=== PATIENT | female | born 1945 | race Caucasian/White ===

== ENCOUNTER 2016-06-02 13:11 | Inpatient (IN) | payer OTHER ==
[~2016-06-02] VITALS: Ht 162.6 cm; Wt 73.5 kg
--- NOTE | ~2016-06-02 | EKG ---
[address] [address] ELECTROCARDIOGRAM REPORT Name: SHARON HANKS Room #: 442-P ADM IN M.R.#: [id number] Admission: 06/02/16 Attend Phys: Nguyễn Espinosa MD Discharge: Date of : 45 Report #: [id number] THIS REPORT FOR: //name// [facility] ED Test Date: 2016-06-02 Test Time: 13:33:07 Pat Name: SHARON HANKS Department: Room: [facility] Gender: F Clinical Laboratory Medical Director: MZOOK : 1945 Requested By: Charles Eldridge Order Number: [id number] MD: Chad Perkins Measurements Intervals [place] Rate: 124 P: 67 NM: 142 QRS: 64 QRSD: 93 T: 48 QT: 302 QTc: 434 Interpretive Statements Sinus tachycardia Probable left atrial enlargement Borderline T abnormalities, anterior leads No previous ECG available for comparison Electronically Signed On 06-03-2016 8:47:38 CDT by Chad Perkins [email or web address] <ELECTRONICALLY SIGNED> By: Chad Perkins MD, [facility] 06/03/16 0847 1333 32 Chad Perkins MD, FAC /EPI
--- NOTE | ~2016-06-02 | 2DMMODE ---
[facility] [employer] [place] [address] 2 D/M-MODE ECHOCARDIOGRAM Name: DEMARIOSHARON Tushar Room #: 442-P [facility] IN .#: [id number] Admission: 06/02/16 Attend Phys: Nguyễn Espinosa, Discharge: Date of : 45 Date of Service: 06/03/16 1313 Report #: [id number] THIS REPORT FOR: //name// APPROVED REPORT Study performed: 06/03/2016 10:35:11 EXAM: Comprehensive 2D, Doppler, and color-flow Echocardiogram Patient Location: In-Patient Room #: 442 Blood Pressure: 110/60 mmHg HR: 119 bpm Other Information Study Quality: Adequate Indications COPD Hypertension/HDD 2D Dimensions LVEF(%): 48.60 (>50%) IVSd: 10.52 (7-11mm) LVOT Diam: 17.00 (18-24mm) LVDd: 39.49 mm PWd: 10.55 (7-11mm) LVDs: 29.96 (25-40mm) Oshea's LVEF: 48.60 % Volumes Left Atrial Volume (Systole) Single Plane 4CH: 41.81 mL Single Plane 2CH: 22.67 mL LA ESV Index: 18.00 mL/m2 Aortic Valve AoV Peak Reagan.: 2.39 m/s AO Peak Gr.: 22.92 mmHg LV Max P.30 mmHg AO Mean Gr.: 12.81 mmHg LV Mean P.81 mmHg LV Max: 1.37 m/s AO V2 VTI: 371.17 mm LV Mean: 1.04 m/s ROWAN (VTI): 1.43 cm2 LV V1 VTI: 238.14 mm SV (LVOT): 52.92 mL [facility] [place] [address] 2 D/M-MODE ECHOCARDIOGRAM Name: SHARON HANKS Room #: 442-P [facility] IN M.R.#: [id number] Admission: 06/02/16 Attend Phys: Nguyễn Espinosa, Discharge: Date of : 45 Date of Service: 06/03/16 1313 Report #: [id number] Mitral Valve E/A Ratio: 0.7 MV Decel. Time: 105.74 ms MV E Max Reagan.: 1.16 m/s MV A Reagan.: 1.76 m/s MV PHT: 30.66 ms Pulmonary Valve PV Peak Reagan.: 1.10 m/s PV Peak Gr.: 4.89 mmHg Tricuspid Valve TR Peak Reagan.: 3.22 m/s RAP Estimate: 5.00 mmHg TR Peak Gr.: 41.56 mmHg Left Ventricle The left ventricle is normal size. There is normal LV segmental wall motion. Mild concentric left ventricular hypertrophy. Left ventricular systolic function is normal. The left ventricular ejection fraction is within the normal range. LVEF is 55-60%. Grade I - abnormal relaxation pattern. Right Ventricle Right ventricle is borderline dilated. The right ventricular systolic function is normal. Atria The left atrium size is normal. The right atrium size is normal. Aortic Valve The Aortic valve is sclerotic, incompletely imaged. No aortic regurgitation is present. Mild aortic stenosis (Peak gradient 23mm, mean 13mmHg). Mitral Valve Moderate mitral annular calcification. There is no mitral valve regurgitation noted. No evidence of mitral valve stenosis. Tricuspid Valve The tricuspid valve is normal in structure. Mild tricuspid regurgitation. Pulmonic Valve The pulmonary valve is normal in structure. There is no pulmon[place] [address] 2 D/M-MODE ECHOCARDIOGRAM Name: LARS HANKSELSA Finley Room #: 442-P [facility] IN .R.#: [id number] Admission: 06/02/16 Attend Phys: Nguyễn Espinosa, Discharge: Date of : 45 Date of Service: 06/03/16 1313 Report #: [id number] Great Vessels The aortic root is normal in size. IVC is normal in size and collapses with >50% inspiration Pericardium Small pericardial effusion. <Conclusion> There is normal left ventricular wall thickness. Left ventricular systolic function is normal. There is normal LV segmental wall motion. LVEF 55-60%. Grade I diastolic dysfunction. Mild RV enlargement, normal function The Aortic valve is sclerotic, incompletely imaged. Mild aortic stenosis (Peak gradient 23mm, mean 13mmHg). No aortic regurgitation is present. Moderate mitral annular calcification. No mitral valve regurgitation or stenosis Pulmonary artery pressure normal. Small pericardial effusion. <ELECTRONICALLY SIGNED> By: Chad Perkins MD, FACC 06/03/16 131 12 12 Chad Perkins MD, FACC /INF
--- NOTE | ~2016-06-02 | HC ---
[facility] [place] [address] CONSULTATION Name: SHARON HANKS Room #: 442-P ADM IN M.R.#: [id number] Admission: 06/02/16 Attend Phys: Nguyễn Espinosa MD Discharge: Date of : 45 Report #: [id number] THIS REPORT FOR: //name// CC: Nguyễn Arce DATE OF SERVICE: 06/02/2016 TYPE OF REPORT: General surgery consultation. CHIEF COMPLAINT: Abdominal pain. HISTORY OF PRESENT ILLNESS: This is a 70-year-old female patient who was seen in the [facility] with complaints of lower abdominal pain over the past 8 days. Her pain has been unchanged over that amount of time. She elected to visit the emergency room as she felt she could not go on further. She denies nausea, vomiting, fever or chills. Her last bowel movement was this morning, which she reports as a soft but not normal. She denies passage of bright red blood per rectum. She states that when she usually has pain like this, it resolves with p.o. fluids. She describes this as gas pain. When seen in the emergency room, she underwent a CT of the abdomen and pelvis, which showed the findings for acute sigmoid diverticulitis with evidence for perforation. In addition to this, the patient had dilated loops of small bowel with air-fluid levels. I have been asked to see the patient for further evaluation and treatment. PAST MEDICAL HISTORY: Includes COPD, gastroesophageal reflux disease, depression, anxiety, hypercholesterolemia and hypertension. PAST SURGICAL HISTORY: Denies. MEDICATIONS: At home include Paxil, buspirone, omeprazole, Cozaar, aspirin, Mevacor, hydrochlorothiazide and a probiotic (please see the electronic medical record for dosing details). ALLERGIES: No known drug allergies. FAMILY HISTORY: Reviewed and noncontributory to this hospitalization, although the patient does report a family history of diverticulitis (the patient's daughter). SOCIAL HISTORY: The patient smokes a half pack or greater of cigarettes daily since she was teenager. She admits to one alcoholic drink per day (one glass of wine). 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 She lost her due to colon cancer. She is accompanied by her daughter. [address] [address] CONSULTATION Name: SHARON HANKS Room #: 442-P [facility] IN M.R.#: [id number] Admission: 06/02/16 Attend Phys: Nguyễn Espinosa MD Discharge: Date of : 45 Report #: [id number] REVIEW OF SYSTEMS: As per history of present illness and in addition: GENERAL: The patient denies unintentional weight loss. Denies fever or chills. HEENT: Denies changes in taste, vision, hearing or smell. RESPIRATORY: Denies worsening shortness of breath (had history of COPD). CARDIOVASCULAR: Denies chest pain or palpitations. GASTROINTESTINAL: As per history of present illness. Denies bright red blood per rectum. Has never undergone a colonoscopy in the past. GENITOURINARY: Denies dysuria, urgency, increased urinary frequency or hematuria. MUSCULOSKELETAL: Denies arthralgia or myalgia. NEUROLOGICAL: Denies headaches, numbness or tingling. PSYCHIATRIC: Denies suicidal ideations. Has a history of depression or anxiety. SKIN AND INTEGUMENTARY: Denies new skin lesions, rashes or moles. ENDOCRINE: Denies polydipsia, polyuria, heat or cold intolerance. HEMATOLOGIC: Denies easy bleeding, bruising or anemia. All other review of systems is negative. PHYSICAL EXAMINATION: VITAL SIGNS: Temperature 99.5, blood pressure 102/54, pulse 122, respirations 17 and SpO2 95%. GENERAL: This is a 70-year-old female patient, in no acute distress. HEENT: Atraumatic and normocephalic with moist mucosal membranes. Oropharynx is clear. She has no scleral icterus. NECK: Supple. No appreciable lymphadenopathy. Trachea is midline. CHEST: Clear bilaterally. No crackles or wheezes. CARDIOVASCULAR: Sinus tachycardia. S1 and S2. ABDOMEN: Soft, but tender to palpation, greatest in the lower abdomen. She has mild voluntary guarding but no rebound. No palpable masses. No appreciable hernias. GENITOURINARY: Normal external female genitalia. EXTREMITIES: No clubbing, cyanosis or edema. NEUROLOGICAL: Cranial nerves 2 through 12 grossly intact. PSYCHIATRIC: Normal mood and affect. SKIN AND INTEGUMENTARY: No acute inflammatory changes, rashes or lesions are present. LABORATORY DATA: CBC shows a white blood cell count 8, hemoglobin 14.3, hematocrit 42.2 and platelets 305 with 48% segmented neutrophils. The comprehensive metabolic profile shows a sodium 131, potassium 3.2, chloride 91, CO2 29, BUN 29, creatinine 1.8 and glucose 135 with normal liver function tests and a normal lipase. Her troponin-I was less than 0.04. Lactic acid was normal at 1.9. The natriuretic peptide was elevated at 8579. RADIOLOGIC STUDIES: CT of the abdomen and pelvis was reviewed in detail with [address] [address] CONSULTATION Name: SHARON HANKS Room #: 442-P ADM IN [facility].#: [id number] Admission: 06/02/16 Attend Phys: Nguyễn Espinosa MD Discharge: Date of : 45 Report #: [id number] the radiologist who read the study, Dr. Garret Ivan. The patient was felt to have diverticulitis with a perforation of the sigmoid colon with small areas of pneumoperitoneum. There was extraluminal air and fluid adjacent to the left colon. Diffuse colonic diverticulosis was noted. In addition, dilated loops of small bowel, measuring up to 4.1 cm with air-fluid levels were seen with no focal transition point. IMPRESSION AND PLAN: This is a 70-year-old female patient with a history of chronic obstructive pulmonary disease, hypertension, gastroesophageal reflux disease, hypercholesterolemia, depression/anxiety and colonic diverticulosis, who now has diverticulitis with a probable perforation/microperforation and probable abscess. In discussion with radiology, if any abscess was present, it did not appear to be matured and not amenable to drain placement. His recommendation was for a repeat CT of the abdomen and pelvis with rectal contrast. The patient cannot receive IV contrast as her creatinine is elevated at 1.8, likely secondary to dehydration. In addition to this, the patient's b-natriuretic peptide was elevated. Medicine will address this. The patient may benefit from a cardiology consult. I agree with the patient receiving IV antibiotics and bowel rest. We discussed the pathophysiology and natural history of diverticular disease as well as the workup, treatment alternatives and surgical options. We discussed both immediate/urgent and delayed surgical options, pending the patient's clinical course. The patient expressed understanding. I will follow along with serial abdominal exams as well as labs and x-rays as necessary. A CT of the abdomen and pelvis with water-soluble rectal contrast will be obtained soon. Interventional radiology will be consulted if an abscess is present to potential have the abscess percutaneously drained. The patient expressed understanding of the plan. I sincerely appreciate the opportunity to participate in the care of this patient and we will leave further recommendations and orders in the electronic medical record as appropriate. Thank you very much. <ELECTRONICALLY SIGNED> By: Nish Lobo MD, FACS 06/04/16 0735 2304 0550 Nish Lobo MD, FACS /nt
--- NOTE | ~2016-06-02 | HC ---
[facility] [place] [address] CONSULTATION Name: SHARON HANKS Room #: 442-P [facility] IN M.R.#: [id number] Admission: 06/02/16 Attend Phys: Luci Kirkland MD Discharge: Date of : 45 Report #: [id number] THIS REPORT FOR: //name// CC: Nay Kirkland DATE OF SERVICE: 06/12/2016 TYPE OF REPORT: Infectious disease consultation. ATTENDING PHYSICIAN: . HISTORY OF PRESENT ILLNESS: The patient is a 70-year-old white woman initially hospitalized with abdominal pain and diagnosed to have microperforation of acute diverticulitis, which she undergoes a percutaneous drainage initially and again repeated a percutaneous drainage yesterday. She has been on Zosyn . At present, the patient is very uncomfortable, complained of abdominal wall distention and abdominal pain, episode of emesis. PAST MEDICAL HISTORY: COPD, hyperkalemia, acute diverticulitis, diverticular abscess, depression, mucositis secondary to broad spectrum antibiotics. DRUG ALLERGIES: None listed. MEDICATIONS: She is on acetaminophen p.r.n., hydrocodone p.r.n., morphine sulfate p.r.n., enoxaparin 40 mg at bedtime subcutaneously, hydrochlorothiazide 12.5 mg daily, losartan 100 mg daily, simethicone 80 mg a.c. and at bedtime p.r.n., budesonide 0.5 mg inhalation treatments b.i.d., Atrovent, albuterol inhalation treatment every 4 hours, lactobacillus acidophilus 1 capsule daily, aspirin 81 mg daily, paroxetine 10 mg daily, Zosyn 2.25 grams IV every 6 hours since admission, p.r.n. ondansetron. SOCIAL HISTORY: See H and P, old records. FAMILY HISTORY: See H and P, old records. REVIEW OF SYSTEMS: As above and see H and P. PHYSICAL EXAMINATION: GENERAL: Chronically ill-appearing woman has been afebrile for days. VITAL SIGNS: Temperature 98.7, pulse 105, respirations 20, BP 136/74. HEENT: Pupils are reactive. Mouth severe mucositis, redness tongue. NECK: Supple. LUNGS: Decreased breath sounds. HEART: S1, S2. [address] [address] CONSULTATION Name: SHARON HANKS Room #: 442[facility] IN M.R.#: [id number] Admission: 06/02/16 Attend Phys: Luci Kirkland MD Discharge: Date of : 45 Report #: [id number] BREASTS: Deferred. ABDOMEN: Distended, tympanitic, tender with [address], the new is one on right lower quadrant draining serous bloody fluid, the old ALPA draining turbid-looking fluid. NEUROLOGIC: Grossly within normal limits. LABORATORY DATA: Sodium 137, potassium 3, BUN 6, creatinine 0.8. WBC 9000, hemoglobin 11.6, platelets 265,000. MICROBIOLOGY DATA: The repeat cultures from abscess drain yesterday's are pending and the culture obtained on June 07 revealed Bacteroides fragilis, Streptococcus anginosus and E. coli. ASSESSMENT: 1. Acute diverticulitis with perforation and abscess formation, status post percutaneous drainage. 2. Possible ileus. 3. Chronic obstructive pulmonary disease. SUGGESTIONS: Recommend Unasyn 3 grams IV q. 6 hours, Diflucan 200 mg IV daily. Per Dr. Lobo, thank you for requesting my suggestions. <ELECTRONICALLY SIGNED> By: Ricardo Mosquera MD 06/13/16 0555 0828 2236 Ricardo Mosquera MD /nt
[2016-06-02 13:12] VITALS: BP 120/68
[2016-06-02] MEDS ORDERED: PAXIL10 MG PO (13:23)
[2016-06-02] MEDS ORDERED: BUSPIRONE HCL10 MG PO (13:23)
[2016-06-02] MEDS ORDERED: OMEPRAZOLE20 M2 PO (13:24)
[2016-06-02] MEDS ORDERED: COZAAR 25 MG TA25 MG PO (13:24)
[2016-06-02] MEDS ORDERED: COZAAR 50 MG TA50 M2 PO (13:25)
[2016-06-02] MEDS ORDERED: LOVASTATIN 20 M20 MG PO (13:25)
[2016-06-02] MEDS ORDERED: ASPIR 8181 MG PO (13:25)
[2016-06-02] MEDS ORDERED: PROBIOTIC1 EAC1 PO (13:26)
[2016-06-02] MEDS ORDERED: HYDROCHLOROTH12.5 M1 PO (13:26)
[2016-06-02 13:45] LABS: HEMATOCRIT 42.2 % (37.0-47.0); HEMOGLOBIN 14.3 gm/dL (12.0-15.0); MCH 30.3 pg (26.0-34.0); MCHC 33.8 g/dL (28.0-37.0); MCV 89.6 fL (80.0-100.0); PLATELET COUNT 305 thou/uL (150-400); RBC 4.71 mil/uL (4.20-5.00); RDW 13.9 % (10.5-14.5); WBC 8.8 thou/uL (4.0-11.0)
[2016-06-02 13:46] LABS: MANUAL DIFF YES
[2016-06-02 14:05] LABS: POTASSIUM 3.2 mmol/L (3.5-5.1)
[2016-06-02 14:06] LABS: CALCIUM 8.8 mg/dL (8.5-10.1); CREATININE 1.8 mg/dL (0.6-1.0); TOTAL BILIRUBIN 0.4 mg/dL (<0.1-1.0)
[2016-06-02 14:07] LABS: ALBUMIN 2.3 g/dL (3.4-5.0); TOTAL PROTEIN 7.4 g/dL (6.4-8.2)
[2016-06-02 14:28] LABS: ABSOLUTE NEUTROPHILS 7.8 thou/uL (1.4-8.2); TOTAL CELL COUNT 100
[2016-06-02 14:29] LABS: TOXIC GRANULATION 4+
[2016-06-02 14:30] LABS: ANISOCYTOSIS SLIGHT; POLYCHROMASIA SLIGHT
[2016-06-02 16:17] VITALS: BP 102/54
[2016-06-02 17:02] VITALS: BP 93/52
[2016-06-02 19:27] VITALS: BP 107/55
[2016-06-03 05:45] LABS: HEMOGLOBIN 12.6 gm/dL (12.0-15.0); MCH 30.3 pg (26.0-34.0); MCHC 33.3 g/dL (28.0-37.0); MCV 91.2 fL (80.0-100.0); RBC 4.17 mil/uL (4.20-5.00); RDW 14.2 % (10.5-14.5); WBC 9.4 thou/uL (4.0-11.0)
[2016-06-03 06:05] LABS: CALCIUM 7.3 mg/dL (8.5-10.1); CREATININE 1.8 mg/dL (0.6-1.0); POTASSIUM 3.6 mmol/L (3.5-5.1)
[2016-06-03 07:21] VITALS: BP 110/60
[2016-06-03 12:40] VITALS: BP 131/90
[2016-06-03 16:22] VITALS: BP 113/61
[2016-06-03 17:01] LABS: ABG SAMPLE TYPE ARTERIAL; BE(vivo) -0.8 mmol/L (-2 to +3); HCO3 26.2 mmol/L (22.0-26.0); LACTATE 1.21 mmol/L (0.5-2.0); O2(CT) 15.6 mL/dL (15.0-23.0); O2Hb 86.6 % (92.0-98.0); PCO2 53.4 mmHg (35.0-45.0); PO2 60.5 mmHg (80.0-100.0); sO2 88.6 % (92.0-98.0); tCO2 27.8 mmol/L (24.0-30.0)
[2016-06-03 17:02] LABS: STICK SITE L.RADIAL; pH 7.308 (7.360-7.450)
[2016-06-03 17:55] LABS: ABG SAMPLE TYPE ARTERIAL; BE(vivo) -2.5 mmol/L (-2 to +3); HCO3 25.1 mmol/L (22.0-26.0); LACTATE 1.31 mmol/L (0.5-2.0); O2(CT) 16.9 mL/dL (15.0-23.0); O2Hb 91.6 % (92.0-98.0); PCO2 55.3 mmHg (35.0-45.0); PO2 78.1 mmHg (80.0-100.0); sO2 93.7 % (92.0-98.0); tCO2 26.8 mmol/L (24.0-30.0)
[2016-06-03 17:56] LABS: STICK SITE L.RADIAL; pH 7.274 (7.360-7.450)
[2016-06-03 19:37] VITALS: BP 116/55
[2016-06-04 04:32] VITALS: BP 124/54
[2016-06-04 05:54] LABS: HEMATOCRIT 36.9 % (37.0-47.0); HEMOGLOBIN 12.1 gm/dL (12.0-15.0); MCHC 32.8 g/dL (28.0-37.0); MCV 91.3 fL (80.0-100.0); RBC 4.04 mil/uL (4.20-5.00); RDW 14.3 % (10.5-14.5); WBC 10.9 thou/uL (4.0-11.0)
[2016-06-04 06:11] LABS: CALCIUM 7.8 mg/dL (8.5-10.1); CREATININE 1.8 mg/dL (0.6-1.0)
[2016-06-04 06:24] LABS: MANUAL DIFF YES
[2016-06-04 08:00] LABS: PLATELET COUNT 245 thou/uL (150-400); TOTAL CELL COUNT 100
[2016-06-04 08:01] LABS: PLATELET ESTIMATE NORMAL
[2016-06-04 08:02] LABS: TOXIC GRANULATION 2+
[2016-06-04 08:03] VITALS: BP 109/62
[2016-06-04 08:03] LABS: ABSOLUTE NEUTROPHILS 10.1 thou/uL (1.4-8.2)
[2016-06-04 11:25] VITALS: BP 135/55
[2016-06-04 15:50] VITALS: BP 125/63
[2016-06-04 20:34] VITALS: BP 129/63
[2016-06-05 03:40] VITALS: BP 146/75
[2016-06-05 07:22] LABS: HEMATOCRIT 38.5 % (37.0-47.0); HEMOGLOBIN 12.6 gm/dL (12.0-15.0); MCH 29.8 pg (26.0-34.0); MCHC 32.6 g/dL (28.0-37.0); MCV 91.3 fL (80.0-100.0); PLATELET COUNT 206 thou/uL (150-400); RBC 4.22 mil/uL (4.20-5.00); RDW 14.9 % (10.5-14.5); WBC 9.7 thou/uL (4.0-11.0)
[2016-06-05 07:24] LABS: MANUAL DIFF YES
[2016-06-05 07:32] LABS: CALCIUM 8.4 mg/dL (8.5-10.1); CREATININE 1.1 mg/dL (0.6-1.0); POTASSIUM 3.6 mmol/L (3.5-5.1)
[2016-06-05 07:41] VITALS: BP 131/77
[2016-06-05 10:34] LABS: ABSOLUTE NEUTROPHILS 9.2 thou/uL (1.4-8.2); ATYPICAL LYMPHS 1 %; TOTAL CELL COUNT 100
[2016-06-05 10:35] LABS: ANISOCYTOSIS SLIGHT
[2016-06-05 11:11] VITALS: BP 145/73
[2016-06-05 11:11] LABS: ABG SAMPLE TYPE ARTERIAL; BE(vivo) 1.6 mmol/L (-2 to +3); HCO3 29.3 mmol/L (22.0-26.0); LACTATE 1.04 mmol/L (0.5-2.0); O2(CT) 16.5 mL/dL (15.0-23.0); O2Hb 92.1 % (92.0-98.0); PCO2 60.8 mmHg (35.0-45.0); PO2 72.3 mmHg (80.0-100.0); sO2 92.6 % (92.0-98.0); tCO2 31.2 mmol/L (24.0-30.0)
[2016-06-05 11:13] LABS: pH 7.301 (7.360-7.450)
[2016-06-05 11:16] LABS: STICK SITE R.RADIAL
[2016-06-05 15:46] VITALS: BP 151/76
[2016-06-05 20:17] VITALS: BP 145/71
[2016-06-06 03:40] VITALS: BP 156/62
[2016-06-06 04:24] LABS: HEMATOCRIT 37.2 % (37.0-47.0); MCH 30.1 pg (26.0-34.0); MCHC 32.4 g/dL (28.0-37.0); PLATELET COUNT 204 thou/uL (150-400); RDW 15.2 % (10.5-14.5); WBC 9.3 thou/uL (4.0-11.0)
[2016-06-06 04:25] LABS: MANUAL DIFF YES
[2016-06-06 04:33] LABS: CALCIUM 8.6 mg/dL (8.5-10.1); CREATININE 0.9 mg/dL (0.6-1.0); POTASSIUM 3.8 mmol/L (3.5-5.1)
[2016-06-06 05:25] LABS: ABSOLUTE NEUTROPHILS 8.1 thou/uL (1.4-8.2); ANISOCYTOSIS SLIGHT; ATYPICAL LYMPHS 1 %; TOTAL CELL COUNT 100
[2016-06-06 07:41] VITALS: BP 136/80
[2016-06-06 11:39] VITALS: BP 144/72
[2016-06-06 15:53] VITALS: BP 153/79
[2016-06-06 20:00] VITALS: BP 171/80
[2016-06-07 04:14] VITALS: BP 159/93
[2016-06-07 06:16] LABS: HEMOGLOBIN 12.5 gm/dL (12.0-15.0); MCH 30.8 pg (26.0-34.0); MCHC 33.8 g/dL (28.0-37.0); MCV 90.9 fL (80.0-100.0); PLATELET COUNT 221 thou/uL (150-400); RBC 4.06 mil/uL (4.20-5.00); RDW 15.2 % (10.5-14.5); WBC 8.6 thou/uL (4.0-11.0)
[2016-06-07 06:18] LABS: MANUAL DIFF YES
[2016-06-07 06:32] LABS: CALCIUM 7.8 mg/dL (8.5-10.1); CREATININE 0.7 mg/dL (0.6-1.0); POTASSIUM 3.9 mmol/L (3.5-5.1)
[2016-06-07 07:33] VITALS: BP 159/93
[2016-06-07 07:48] VITALS: BP 158/78
[2016-06-07 08:00] VITALS: BP 158/78
[2016-06-07 08:52] LABS: ANISOCYTOSIS SLIGHT; TOTAL CELL COUNT 100
[2016-06-07 16:45] VITALS: BP 121/65
[2016-06-07 20:55] VITALS: BP 154/78
[2016-06-08 00:10] VITALS: BP 142/76
[2016-06-08 04:40] VITALS: BP 135/67
[2016-06-08 08:00] VITALS: BP 144/86
[2016-06-08 11:28] VITALS: BP 139/89
[2016-06-08 16:00] VITALS: BP 137/78
[2016-06-08 19:25] VITALS: BP 127/76
[2016-06-09 03:25] VITALS: BP 133/84
[2016-06-09 05:43] LABS: HEMATOCRIT 36.8 % (37.0-47.0); HEMOGLOBIN 11.8 gm/dL (12.0-15.0); MCH 29.2 pg (26.0-34.0); MCHC 32.1 g/dL (28.0-37.0); MCV 90.9 fL (80.0-100.0); RBC 4.05 mil/uL (4.20-5.00); RDW 14.7 % (10.5-14.5); WBC 9.4 thou/uL (4.0-11.0)
[2016-06-09 05:59] LABS: CALCIUM 8.1 mg/dL (8.5-10.1); CREATININE 0.8 mg/dL (0.6-1.0); POTASSIUM 3.4 mmol/L (3.5-5.1)
[2016-06-09 07:12] LABS: ABG SAMPLE TYPE ARTERIAL; BE(vivo) 9.5 mmol/L (-2 to +3); HCO3 34.3 mmol/L (22.0-26.0); LACTATE 0.85 mmol/L (0.5-2.0); O2(CT) 15.8 mL/dL (15.0-23.0); O2Hb 88.7 % (92.0-98.0); PCO2 47.6 mmHg (35.0-45.0); PO2 57.9 mmHg (80.0-100.0); pH 7.476 (7.360-7.450); sO2 91.5 % (92.0-98.0); tCO2 35.8 mmol/L (24.0-30.0)
[2016-06-09 07:13] LABS: STICK SITE L.RADIAL
[2016-06-09 08:00] VITALS: BP 167/70
[2016-06-09 12:40] VITALS: BP 120/68
[2016-06-09 15:21] VITALS: BP 177/85
[2016-06-09 18:57] VITALS: BP 161/99
[2016-06-10 04:10] VITALS: BP 158/90
[2016-06-10 07:11] VITALS: BP 109/90
[2016-06-10 12:02] VITALS: BP 165/76
[2016-06-10 16:00] VITALS: BP 154/71
[2016-06-10 16:26] VITALS: BP 165/76
[2016-06-10 19:33] VITALS: BP 153/63
[2016-06-11 04:14] VITALS: BP 153/68
[2016-06-11 08:00] VITALS: BP 162/83
[2016-06-11 11:29] VITALS: BP 146/80
[2016-06-11 15:47] VITALS: BP 143/73
[2016-06-12 00:21] VITALS: BP 120/71
[2016-06-12 04:09] VITALS: BP 115/69
[2016-06-12 06:06] LABS: HEMATOCRIT 34.6 % (37.0-47.0); HEMOGLOBIN 11.6 gm/dL (12.0-15.0); MCH 29.8 pg (26.0-34.0); MCHC 33.5 g/dL (28.0-37.0); PLATELET COUNT 265 thou/uL (150-400); RBC 3.89 mil/uL (4.20-5.00); RDW 14.3 % (10.5-14.5)
[2016-06-12 06:18] LABS: CALCIUM 7.4 mg/dL (8.5-10.1); CREATININE 0.8 mg/dL (0.6-1.0)
[2016-06-12 06:28] LABS: MANUAL DIFF YES
[2016-06-12 07:20] VITALS: BP 136/74
[2016-06-12 08:38] LABS: ABSOLUTE NEUTROPHILS 7.5 thou/uL (1.4-8.2); TOTAL CELL COUNT 100
[2016-06-12 11:20] VITALS: BP 136/71
[2016-06-12 15:22] VITALS: BP 157/78
[2016-06-12 19:54] VITALS: BP 153/72
[2016-06-13 03:24] VITALS: BP 144/77
[2016-06-13 03:35] LABS: HEMATOCRIT 35.2 % (37.0-47.0); HEMOGLOBIN 11.7 gm/dL (12.0-15.0); MCH 29.7 pg (26.0-34.0); MCHC 33.1 g/dL (28.0-37.0); MCV 89.9 fL (80.0-100.0); PLATELET COUNT 285 thou/uL (150-400); RBC 3.92 mil/uL (4.20-5.00); RDW 14.2 % (10.5-14.5); WBC 9.5 thou/uL (4.0-11.0)
[2016-06-13 03:48] LABS: MANUAL DIFF YES
[2016-06-13 03:49] LABS: ALBUMIN 1.7 g/dL (3.4-5.0); CALCIUM 8.1 mg/dL (8.5-10.1); CREATININE 0.9 mg/dL (0.6-1.0); PHOSPHORUS 2.9 mg/dL (2.5-4.9); POTASSIUM 3.3 mmol/L (3.5-5.1)
[2016-06-13 04:43] LABS: ABSOLUTE NEUTROPHILS 8.2 thou/uL (1.4-8.2); TOTAL CELL COUNT 100; TOXIC GRANULATION 1+
[2016-06-13 08:00] VITALS: BP 160/81
[2016-06-13 12:00] VITALS: BP 160/83
[2016-06-13 16:00] VITALS: BP 156/78
[2016-06-13 19:53] VITALS: BP 155/79
[2016-06-14 04:16] VITALS: BP 147/73
[2016-06-14 06:14] LABS: HEMATOCRIT 37.7 % (37.0-47.0); HEMOGLOBIN 12.1 gm/dL (12.0-15.0); MCH 29.4 pg (26.0-34.0); MCHC 32.2 g/dL (28.0-37.0); MCV 91.3 fL (80.0-100.0); PLATELET COUNT 357 thou/uL (150-400); RBC 4.13 mil/uL (4.20-5.00); RDW 14.8 % (10.5-14.5); WBC 12.2 thou/uL (4.0-11.0)
[2016-06-14 06:15] LABS: MANUAL DIFF YES
[2016-06-14 06:31] LABS: CALCIUM 8.2 mg/dL (8.5-10.1); CREATININE 0.8 mg/dL (0.6-1.0); PHOSPHORUS 2.7 mg/dL (2.5-4.9); POTASSIUM 3.5 mmol/L (3.5-5.1)
[2016-06-14 07:07] VITALS: BP 160/67
[2016-06-14 08:10] LABS: ABSOLUTE NEUTROPHILS 10.5 thou/uL (1.4-8.2); TOTAL CELL COUNT 100
[2016-06-14 08:11] LABS: ANISOCYTOSIS SLIGHT
[2016-06-14 11:40] VITALS: BP 145/83
[2016-06-14 15:53] VITALS: BP 145/72
[2016-06-14 19:51] VITALS: BP 135/67
[2016-06-15 04:46] VITALS: BP 153/84
[2016-06-15 06:05] LABS: HEMATOCRIT 31.1 % (37.0-47.0); HEMOGLOBIN 10.4 gm/dL (12.0-15.0); MCH 30.2 pg (26.0-34.0); MCHC 33.5 g/dL (28.0-37.0); MCV 90.3 fL (80.0-100.0); PLATELET COUNT 288 thou/uL (150-400); RBC 3.45 mil/uL (4.20-5.00); RDW 14.4 % (10.5-14.5); WBC 10.3 thou/uL (4.0-11.0)
[2016-06-15 06:16] LABS: MANUAL DIFF YES
[2016-06-15 06:22] LABS: CALCIUM 7.9 mg/dL (8.5-10.1); CREATININE 0.8 mg/dL (0.6-1.0); POTASSIUM 3.4 mmol/L (3.5-5.1)
[2016-06-15 09:02] VITALS: BP 154/86
[2016-06-15 09:50] LABS: ABSOLUTE NEUTROPHILS 9.3 thou/uL (1.4-8.2); TOTAL CELL COUNT 100
[2016-06-15 09:51] LABS: ANISOCYTOSIS SLIGHT
[2016-06-15 12:32] VITALS: BP 137/77
[2016-06-15 16:00] VITALS: BP 152/83
[2016-06-15 19:20] VITALS: BP 159/83
[2016-06-16 04:35] VITALS: BP 149/91
[2016-06-16 05:51] LABS: HEMOGLOBIN 10.5 gm/dL (12.0-15.0); MCHC 32.8 g/dL (28.0-37.0); MCV 91.4 fL (80.0-100.0); RBC 3.5 mil/uL (4.20-5.00); RDW 14.8 % (10.5-14.5); WBC 10.1 thou/uL (4.0-11.0)
[2016-06-16 06:10] LABS: ALBUMIN 1.7 g/dL (3.4-5.0); CALCIUM 7.2 mg/dL (8.5-10.1); CREATININE 0.8 mg/dL (0.6-1.0); MAGNESIUM 1.3 mg/dL (1.8-2.4); PHOSPHORUS 2.3 mg/dL (2.5-4.9); POTASSIUM 3.5 mmol/L (3.5-5.1)
[2016-06-16 08:00] VITALS: BP 152/77
[2016-06-16 12:00] VITALS: BP 157/83
[2016-06-16 16:00] VITALS: BP 172/85
[2016-06-16 19:35] VITALS: BP 174/99
[2016-06-17 00:30] VITALS: BP 152/92
[2016-06-17 04:50] VITALS: BP 169/92
[2016-06-17 06:53] LABS: CALCIUM 7.4 mg/dL (8.5-10.1); CREATININE 0.8 mg/dL (0.6-1.0); MAGNESIUM 1.3 mg/dL (1.8-2.4); POTASSIUM 3.9 mmol/L (3.5-5.1)
[2016-06-17 08:31] VITALS: BP 168/97
[2016-06-17 13:19] VITALS: BP 153/76
[2016-06-17 19:03] VITALS: BP 135/75
[2016-06-18 04:45] VITALS: BP 155/97
[2016-06-18 08:00] VITALS: BP 153/93
[2016-06-18 12:14] VITALS: BP 160/92
[2016-06-18 16:45] VITALS: BP 157/100
[2016-06-18 20:20] VITALS: BP 164/103
[2016-06-19 04:40] VITALS: BP 176/105
[2016-06-19 08:44] VITALS: BP 163/84
[2016-06-19 11:35] VITALS: BP 151/75
[2016-06-19 16:07] VITALS: BP 165/85
[2016-06-19 19:52] VITALS: BP 166/99
[2016-06-20 04:20] VITALS: BP 160/88
[2016-06-20 08:19] VITALS: BP 156/83
[2016-06-20 12:24] VITALS: BP 157/89
[2016-06-20 16:27] VITALS: BP 143/68
[2016-06-20 20:35] VITALS: BP 158/99
[2016-06-21] VITALS (8 sets, daily range): BP systolic 160–166; BP diastolic 76–91
[2016-06-21 06:26] LABS: ABSOLUTE NEUTROPHILS 7.1 thou/uL (1.4-8.2); BASOPHILS 0.4 % (0.0-2.0); EOSINOPHILS 0.8 % (0.0-3.0); HEMATOCRIT 31.5 % (37.0-47.0); HEMOGLOBIN 10.6 gm/dL (12.0-15.0); LYMPHOCYTES 10.3 % (24.0-44.0); MCH 29.7 pg (26.0-34.0); MCHC 33.5 g/dL (28.0-37.0); MCV 88.7 fL (80.0-100.0); PLATELET COUNT 348 thou/uL (150-400); POLYS 79.5 % (36.0-66.0); RBC 3.55 mil/uL (4.20-5.00); RDW 15.2 % (10.5-14.5)
[2016-06-21 06:35] LABS: MANUAL DIFF NO
[2016-06-21 06:53] LABS: CALCIUM 8.2 mg/dL (8.5-10.1); CREATININE 0.8 mg/dL (0.6-1.0); POTASSIUM 3.2 mmol/L (3.5-5.1); TOTAL BILIRUBIN 0.3 mg/dL (<0.1-1.0); TOTAL PROTEIN 6.8 g/dL (6.4-8.2)
[2016-06-21] MEDS ORDERED: FLAGYL500 MG PO (10:25)
[2016-06-21] MEDS ORDERED: HYDROCODON-ACE1 EAC7 PO (10:25)
[2016-06-21] MEDS ORDERED: DIFLUCAN200 MG PO (10:25)
[2016-06-21] MEDS ORDERED: SENOKOT-S1 TA1 PO (10:26)
[2016-06-21] MEDS ORDERED: ZOSYN 3.3753.375 GM IV (13:06)
== END 2016-06-21 18:00 | disposition home health service (06) | DRG 871 ==
LOC: ER 13:11 → EROBS 15:08 → 4S 15:08
PROVIDERS: Emergency Medicine; Family Medicine; Hospitalist; Internal Medicine; Internal Medicine Pulmonary Disease; Specialist; Surgery
PROC: 0W9F3ZZ Drainage of Abdominal Wall, Percutaneous Approach (ICD-10-PCS; principal; 2016-06-11)
PROC: 02HV33Z Insertion of Infusion Device into Superior Vena Cava, Percutaneous Approach (ICD-10-PCS; 2016-06-21)
PROC: B548ZZA Ultrasonography of Superior Vena Cava, Guidance (ICD-10-PCS; 2016-06-21)
DX: A41.9 Sepsis, unspecified organism (principal); E43 Unspecified severe protein-calorie malnutrition; J96.21 Acute and chronic respiratory failure with hypoxia; J96.22 Acute and chronic respiratory failure with hypercapnia; K57.20 Diverticulitis of large intestine with perforation and abscess without bleeding; N17.9 Acute kidney failure, unspecified; E87.1 Hypo-osmolality and hyponatremia; L02.211 Cutaneous abscess of abdominal wall; K56.7 Ileus, unspecified; J44.9 Chronic obstructive pulmonary disease, unspecified; F32.9 Major depressive disorder, single episode, unspecified; E78.5 Hyperlipidemia, unspecified; F17.210 Nicotine dependence, cigarettes, uncomplicated; E87.8 Other disorders of electrolyte and fluid balance, not elsewhere classified; K21.9 Gastro-esophageal reflux disease without esophagitis; F41.9 Anxiety disorder, unspecified; I10 Essential (primary) hypertension; E87.6 Hypokalemia; R14.0 Abdominal distension (gaseous); Z79.899 Other long term (current) drug therapy; Z79.82 Long term (current) use of aspirin; Z68.27 Body mass index [BMI] 27.0-27.9, adult
CPT/HCPCS: 10100; 27000; 62110; 62900; 70005

== ENCOUNTER → 2016-07-08 | Outpatient (CLI) | payer OTHER ==
[~2016-07-08] MED LIST: ASPIR 8181 MG PO; BUSPIRONE HCL10 MG PO; COZAAR 25 MG TA25 MG PO; COZAAR 50 MG TA50 M2 PO; DIFLUCAN200 MG PO; FLAGYL500 MG PO; HYDROCHLOROTH12.5 M1 PO; HYDROCODON-ACE1 EAC7 PO; LOVASTATIN 20 M20 MG PO; OMEPRAZOLE20 M2 PO; PAXIL10 MG PO; PROBIOTIC1 EAC1 PO; SENOKOT-S1 TA1 PO; ZOSYN 3.3753.375 GM IV
== END ==
LOC: CAT 07-07 12:36 → TBA 08:04 → CAT 08:24
DX: R10.9 Unspecified abdominal pain (principal)

== ENCOUNTER → 2016-07-16 | Outpatient (CLI) | payer OTHER | LOC: CAT 14:25 | DX: K57.92 Diverticulitis of intestine, part unspecified, without perforation or abscess without bleeding (principal) ==

== ENCOUNTER → 2016-08-23 | Outpatient (CLI) | payer OTHER ==
[~2016-08-23] MED LIST changes: +ANORO ELLIPTA1 EACH; +LUTEIN-ZEAXANT1 EACH PO
== END ==
LOC: CAT → LAB 08-09 12:47 → CAT 08-09 12:59
DX: R10.84 Generalized abdominal pain (principal)

== ENCOUNTER → 2016-08-31 | Outpatient (CLI) | payer OTHER ==
[~2016-08-31] VITALS: Ht 162.6 cm; Wt 66.7 kg
[2016-08-31] VITALS (8 sets, daily range): BP systolic 120–153; BP diastolic 66–87
[~2016-08-31] MED LIST changes: +AUGMENTIN 875875 MG PO; +FAMCICLOVIR250 MG PO; +FLUCONAZOL40 MG/1 ML PO; +HYDROCODONE-AP1 EAC6 PO; +NYSTATIN 1100000 U/M SWISH&SPIT
[2016-08-31 10:27] LABS: HEMATOCRIT 34.4 % (37.0-47.0); HEMOGLOBIN 11.5 gm/dL (12.0-15.0); MCHC 33.4 g/dL (28.0-37.0); MCV 92.8 fL (80.0-100.0); RBC 3.71 mil/uL (4.20-5.00); WBC 14.3 thou/uL (4.0-11.0)
[2016-08-31 10:35] LABS: CALCIUM 9.1 mg/dL (8.5-10.1); CREATININE 0.9 mg/dL (0.6-1.0)
[2016-08-31 10:37] LABS: POTASSIUM 2.7 mmol/L (3.5-5.1)
[2016-08-31 10:41] LABS: PROTIME 10.2 Seconds (9.3-11.4)
== END | disposition home or self-care (01) ==
LOC: CAT 09:07
PROVIDERS: Radiology Vascular & Interventional Radiology
DX: N73.8 Other specified female pelvic inflammatory diseases (principal); I10 Essential (primary) hypertension; J44.9 Chronic obstructive pulmonary disease, unspecified; E78.00 Pure hypercholesterolemia, unspecified; Z79.899 Other long term (current) drug therapy; F17.210 Nicotine dependence, cigarettes, uncomplicated

== ENCOUNTER → 2016-09-09 | Outpatient (CLI) | payer OTHER ==
[~2016-09-09] MED LIST changes: -FAMCICLOVIR250 MG PO; -FLUCONAZOL40 MG/1 ML PO; -HYDROCODONE-AP1 EAC6 PO; -NYSTATIN 1100000 U/M SWISH&SPIT
== END ==
LOC: CAT 07:40
DX: K57.20 Diverticulitis of large intestine with perforation and abscess without bleeding (principal); N73.9 Female pelvic inflammatory disease, unspecified; M47.896 Other spondylosis, lumbar region; T85.638A Leakage of other specified internal prosthetic devices, implants and grafts, initial encounter

== ENCOUNTER 2016-09-16 13:45 | Inpatient (IN) | payer OTHER ==
[~2016-09-16] VITALS: Ht 162.6 cm; Wt 64.1 kg
--- NOTE | ~2016-09-16 | HC ---
[facility] [place] [address] CONSULTATION Name: SHARON HANKS Room #: 454-P ADM IN M.R.#: [id number] Admission: 09/16/16 Attend Phys: Kuldip De León MD Discharge: Date of : 45 Report #: [id number] THIS REPORT FOR: //name// CC: Nay De León REASON FOR CONSULTATION: Evaluate pelvic abscess and diverticular disease. HISTORY OF PRESENT ILLNESS: The patient was a 70-year-old who presented with a diverticular abscess on 06/06/2016. A drain was placed at that time. She was treated with a several week course of Zosyn. She had a good response with this, CT scan on 07/16/2016 showed that the pelvic fluid collection had nearly resolved. Drain remained in place because of persistent output. Subsequently, the drain was accidentally pulled out at home. By August 31, she developed a soft tissue abscess on the right flank. CT scan showed reaccumulation of pelvic abscess. On August 31, a new drain was placed in the abscess cavity. She has had persistent lower abdominal pain. No fever, chills or sweats. Presents now after followup CAT scan showed enlarging abscess and pelvic inflammation. She had mucosal thickening involving the sigmoid colon. Cultures of the abdominal fluid from May showed polymicrobial growth including enterococcus, E. coli, Pseudomonas aeruginosa, Bacteroides fragilis and yeast. Pseudomonas was sensitive to all drugs tested except aztreonam. ALLERGIES: None known. MEDICATIONS: The patient was on Augmentin prior to her return hospitalization, now on metronidazole and Zosyn. PAST MEDICAL HISTORY: COPD, tobacco use, hypertension, hyperlipidemia. FAMILY HISTORY: Noncontributory. SOCIAL HISTORY: Glass of wine daily, cigarette smoker, . MEDICATIONS: As noted on her MAR including Zosyn and metronidazole. REVIEW OF SYSTEMS: Has intermittent cough with clear sputum production. No nausea or vomiting. No dysuria or frequency. PHYSICAL EXAMINATION: GENERAL: Afebrile, hemodynamically stable. She was alert, cooperative and pleasant. VITAL SIGNS: She was a bit tachycardic at 115. Oxygen saturation was 89% on room air. HEENT: Unremarkable. CHEST: Clear. HEART: Regular and tachycardic. [address] [address] CONSULTATION Name: SHARON HANKS Room #: 454-[facility] IN M.R.#: [id number] Admission: 09/16/16 Attend Phys: Kuldip De León MD Discharge: Date of : 45 Report #: [id number] ABDOMEN: Soft, tender in the lower abdomen with no guarding or rebound. She had more tenderness in the midline lower abdomen. Right buttock drain with purulent drainage in the bag. LABORATORY STUDIES: Lactate 1.1, sodium 136, potassium 3.8, bicarbonate of 33, creatinine 1.1. Hemoglobin 11.8, WBC 12.2, platelet count 379,000. IMPRESSION: A 70-year-old with complicated diverticulitis with pelvic abscess that has recurred despite antibiotic coverage and drain placement. PLAN: Recommend IV antibiotic therapy and surgical intervention for diversion. <ELECTRONICALLY SIGNED> By: Yazan Montejo MD 09/17/16 1127 11 2035 Yazan Montejo MD /nt
--- NOTE | ~2016-09-16 | O ---
[facility] [place] [address] OPERATIVE REPORT Name: SHARON HANKS Room #: 454-P ADM IN M.R.#: [id number] Admission: 09/16/16 Attend Phys: Kuldip De León MD Discharge: Date of : 45 Report #: [id number] THIS REPORT FOR: //name// CC: Nay De León DATE OF SERVICE: 09/21/2016 OR is #1. SURGEON: Ty Avalos MD. LINER ASSEMBLER: None. PREOPERATIVE DIAGNOSIS: Pelvic abscess. POSTOPERATIVE DIAGNOSIS: Pelvic abscess. PROCEDURE: Cystoscopy and ____ ureteral catheter placement. COMPLICATIONS: None. ANESTHETIC: General. ESTIMATED BLOOD LOSS: None. DESCRIPTION OF PROCEDURE: The patient taken to the operating room, general anesthesia was induced. The patient was then prepped and draped in the usual sterile fashion in the dorsal lithotomy position. The meatus was entered with a rigid cystoscope. The urethra appeared normal. The bladder mucosa systematically examined and appeared normal. The ureteral orifices appeared orthotopic bilaterally. I then cannulated the left ureteral orifice with a 0.035 sensor wire. This is advanced up into the kidney. I then advanced a 6-Occitan open-ended ureteral catheter over this. I then repeated the process on the right hand side. The cystoscope was withdrawn. A catheter was then placed. The patient was then turned over to Dr. Lobo at this time. He will remove the ureteral catheter ____ his portion of the procedure. By: 1753 1828 Ty Avalos MD /radha
--- NOTE | ~2016-09-16 | EKG ---
[address] [address] ELECTROCARDIOGRAM REPORT Name: SHARON HANKS Room #: 454- ADM IN M.R.#: [id number] Admission: 09/16/16 Attend Phys: Kuldip De León MD Discharge: Date of : 45 Report #: [id number] THIS REPORT FOR: //name// [facility] Test Date: 2016-09-16 Test Time: 21:03:52 Pat Name: SHARON HANKS Department: Room: 454 Gender: F Tool Polisher: Tony BOYLE : 1945 Requested By: Yazan Montejo Order Number: [id number] MD: Charles Goodwin Measurements Intervals [place] Rate: 109 P: 37 OR: 166 QRS: 0 QRSD: 81 T: 58 QT: 355 QTc: 479 Interpretive Statements Sinus tachycardia Probable left atrial enlargement Compared to ECG 06/02/2016 13:33:07 no significant change Electronically Signed On 09-17-2016 9:26:39 CDT by Charles Goodwin [email or web address] <ELECTRONICALLY SIGNED> By: Charles Goodwin MD 09/17/16 0926 2103 02 MD [place]
--- NOTE | ~2016-09-16 | HC ---
[facility] [place] [address] CONSULTATION Name: SHARON HANKS Room #: 454-P ADM IN M.R.#: [id number] Admission: 09/16/16 Attend Phys: Kuldip De León MD Discharge: Date of : 45 Report #: [id number] THIS REPORT FOR: //name// CC: Nay De León HISTORY OF PRESENT ILLNESS: The patient is a 70-year-old white female with a history of a complicated diverticular abscess who originally had a drain placed on 06/05/2016, and was continued on IV antibiotics. The drain was replaced on 08/21/2016. She then went on to develop worsening abscess formation and has now been admitted and underwent a sigmoid colectomy with small bowel resection on 09/21/2016. She is n.p.o., NG tube was removed earlier today. She is on TPN. She has medical complexity with generalized weakness and debilitation. We are seeing her in rehabilitation medicine consultation. PAST MEDICAL HISTORY: Includes COPD, hypertension, oxygen at home, recurrent abdominal abscesses as noted above, and elevated cholesterol. MEDICATIONS: Please see the full medication listing. SOCIAL HISTORY: Lives with her grandson, 1 step in house, did not utilize an assist device premorbidly. There a neighbor next door that can stay with her during the day. There is a daughter close as well. HABITS: Current tobacco smoker, 30-fvjp-zkgw history, daily glass of wine. REVIEW OF SYSTEMS: Did not offer any current complaints of chest pain, shortness of breath, or abdominal discomfort. She does have some discomfort with movement as expected. PHYSICAL EXAMINATION: GENERAL: A 70-year-old white female, in no obvious distress. She is alert, pleasant, and oriented. HEENT: Appeared to be benign. Cranial nerves are grossly intact. Facies are symmetric. VITAL SIGNS: Last recorded temperature is 98.2, pulse 109, respirations 18, and blood pressure 149/75. ABDOMEN: She has the ostomy in place, abdominal drain right lower quadrant, abdominal binder in place. EXTREMITIES: Functional range of motion of both upper extremities with good strength. In her lower extremities, there is no focal calf swelling, functional range of motion, strength appears to be at least a grade 4-. She is mod assist with sit to stand. She took 5 steps mod assist with a front-wheeled walker. ASSESSMENT: A 70-year-old white female with the following problem list: 1. Medical complexity with generalized debilitation. 2. Complex diverticular abscess, now status post sigmoid colectomy with [address] [address] CONSULTATION Name: SHARON HANKS Room #: 454-[facility] IN M.R.#: [id number] Admission: 09/16/16 Attend Phys: Kuldip De León MD Discharge: Date of : 45 Report #: [id number] small-bowel resection on 09/21/2016. She is currently on TPN. 3. Chronic obstructive pulmonary disease. 4. Hypertension. 5. Elevated lipids. PLAN: She is continuing on the TPN. Occupational therapy orders are add. Physical therapy to continue working with her on improving her strength and endurance and mobility. We will be glad to follow along with you regarding her rehab therapy needs. By: 1255 1314 David Geronimo MD /nt
--- NOTE | ~2016-09-16 | S ---
[facility] [place] [place] [address] SURGICAL PATH RPT PROCEDURE Name: ROSARIO HUMPHREY Room #: 454-P ADM IN M.R.#: [id number] Admission: 09/16/16 Date of : 45 Discharge: Report #: [id number] Path Case #: [id number] PATHOLOGY REPORT COLLECTION DATE: 09/21/2016 RECEIVED DATE: 09/22/2016 SUBMITTING PHYS: Dr. Nish Lobo OTHER PHYS: Dr. Sarthak Arce SPECIMEN(S) RECEIVED: A.Sigmoid colon B.Distal jejunum * * * * * * * * * * * * FINAL DIAGNOSIS: A. "Sigmoid colon," resection: - Diverticulitis with focal transmural acute and chronic inflammation and serosal reactive changes/fibrous adhesions; surgical margins without significant inflammation. B. "Distal jejunum," resection: - Small bowel mucosa, submucosa and muscular wall with patchy areas of acute serositis showing acute and chronic inflammation, necrosis, granulation tissue, and dense serosal fibrous adhesions; surgical margins with mild serosal reactive changes and no significant acute inflammation. (CLW:; 09/24/2016) PATHOLOGIST: Ramya Goel M.D. REPORT ELECTRONICALLY SIGNED BY: Ramya Goel M.D. DATE/TIME: 09/24/2016 16:09 * * * * * * * * * * * * GROSS PATHOLOGY: A. The specimen is received in formalin, labeled "Rosario Humphrey, sigmoid colon suture medina proximal" is a segment of dilated large bowel measuring 16.3 cm in length with diameters ranging from 3.5-4.4 cm. Each margin is closed with a line of suellen. The proximal margin is marked with a blue suture. The proximal one third has a pink-red, smooth serosa while the distal portion is congested with numerous adhesions. The lumen contains bellamy-brown soft fecal material. The proximal mucosa has a flattened, fecal stained appearance. The distal one third to include the distal margin is remarkable for multiple diverticula measuring up to 0.7 cm. The mucosa surrounding the diverticula has an erythematous, pink-red appearance. A diverticulum near the distal margin has a hemorrhagic [facility] [address] [place] [address] SURGICAL PATH RPT PROCEDURE Name: ROSARIO HUMPHREY Room #: 454-P [facility] IN [facility].#: [id number] Admission: 09/16/16 Date of : 45 Discharge: Report #: [id number] Path Case #: [id number] appearance and contains pink red cloudy, purulent material. No additional abnormalities are identified. [employer] sections are submitted as follows: A1 - proximal margin A2 - distal margin to include diverticulum A3-A4 - hemorrhagic diverticulum near distal margin A5 - additional diverticula A6 - dilated bowel to include serosal adhesions B. The specimen is received in formalin, labeled "Rosario Humphrey, distal jejunum" is an unoriented segment of small bowel measuring 19.5 cm in length with a maximum diameter of 3.0 cm. Each margin is closed with a line of suellen. The serosa is variegated purple simon and smooth to pink-red, ragged with numerous adhesions. The lumen contains brown green soft fecal material. The mucosa is bellamy to brown green, velvety, fecal stained and shows its normal circular folds. No mucosal abnormalities correspond to the serosal adhesions. No mass lesions or transmural defects are identified. [employer] sections are submitted as follows: B1-B2 - margins B3-B4 - full thickness sections to include serosal adhesions B5 - additional full-thickness section. (RAYMUNDOP; 09/23/2016) CLINICAL HISTORY: Acute symptomatic diverticulitis with abscess INITIAL CPT CODE(S): A; 74443 B; 82161 Professional services performed by [facility] [facility] at [place] [address], [place] [address] Technical services performed by [employer] at [address] [place] [address], [address], [place] [address]. [facility] [address] [place] [address] PHONE: [phone] DIRECTOR: Lisandro Lepe M.D. * * * END OF REPORT * * *
--- NOTE | ~2016-09-16 | HC ---
[facility] [place] [address] [place] [address] CONSULTATION Name: SHARON HANKS Room #: 454-P ADM IN M.R.#: [id number] Admission: 09/16/16 Attend Phys: Kuldip De León MD Discharge: Date of : 45 Report #: [id number] THIS REPORT FOR: //name// CC: Nay De León DATE OF SERVICE: 09/16/2016 ATTENDING PHYSICIAN: Kuldip De León M.D. REASON FOR CONSULTATION: Diverticulitis with abscess. HISTORY OF PRESENT ILLNESS: A 70-year-old female patient who is well known to me from management of acute diverticulitis. I initially saw her in late May of this year, during which time she was admitted with lower abdominal pain for 8 days prior to her admission. CT of the abdomen and pelvis showed findings consistent with acute sigmoid diverticulitis with evidence for a microperforation. The patient also had dilated loops of small bowel with air fluid levels. She ultimately underwent drain placement during that hospitalization. Interventional radiology helped to manage the drain and pulled the drain in mid July after some discussion with the patient, who was adamant to that the drain be removed. She was also adamantly against undergoing an operation which would potentially involve creation of an ostomy. Three weeks after removal of the drain, she developed worsening pain and was seen in my clinic during which time I sent her for a repeat CT of the abdomen and pelvis. This revealed a large pelvic abscess. She again underwent percutaneous drain placement by interventional radiology. Thereafter, she continued to have difficulty with abdominal pain and a followup CT scan showed potentially 2-3 fistulous communications with the cavity. The patient was then admitted through the emergency room. In addition to her enlarging abscess, the sigmoid colon showed mucosal thickening. I have been asked to see the patient for further evaluation and treatment. The drain remains in place. PAST MEDICAL HISTORY: Significant for COPD, gastroesophageal reflux disease, depression, anxiety, hypercholesterolemia, hypertension and alcoholism (discussed with the patient's primary care physician). PAST SURGICAL HISTORY: Denies. MEDICATIONS: Include Paxil, buspirone, omeprazole, Cozaar, aspirin, Mevacor, hydrochlorothiazide and a probiotic. Please see the hospital chart for details. ALLERGIES: No known drug allergies. FAMILY HISTORY: Reviewed and noncontributory to this hospitalization. [address] [address] CONSULTATION Name: SHARON HANKS Room #: 454-P [facility] IN M.R.#: [id number] Admission: 09/16/16 Attend Phys: Kuldip De León MD Discharge: Date of : 45 Report #: [id number] SOCIAL HISTORY: The patient reports smoking half a pack of cigarettes daily since she was a teenager. She also reports 1 alcoholic drink per day (1 glass of wine). In discussion with Dr. Arce, the patient is an alcoholic. She has discussed this with the patient's daughter. 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 REVIEW OF SYSTEMS: As per history of present illness. In addition: GENERAL: The patient reports mild unintentional weight loss. Denies fever or chills. HEENT: Denies changes in taste, vision, hearing, or smell. RESPIRATORY: Denies worsening shortness of breath and has a history of COPD. She required oxygen by nasal cannula at her last hospitalization and eventually stopped this as this was no longer needed. CARDIOVASCULAR: Denies chest pain or palpitations. GASTROINTESTINAL: As per history of present illness. Denies bright red blood per rectum. Reports no bowel movement over the past couple days, but is passing flatus. GENITOURINARY: Denies dysuria, urgency, increased urinary frequency or hematuria. MUSCULOSKELETAL: Denies myalgia or arthralgia. NEUROLOGIC: Denies headaches, numbness or tingling. PSYCHIATRIC: Denies suicidal ideations. The patient has a history of depression and anxiety. SKIN AND INTEGUMENTARY: Denies new skin lesions, rashes, or moles. ENDOCRINE: Denies polydipsia, polyuria, heat or cold intolerance. HEMATOLOGIC: Denies easy bleeding, bruising or anemia. All other review of systems is negative. PHYSICAL EXAMINATION: VITAL SIGNS: Temperature 98.4, blood pressure 167/95, pulse 118, respirations 16. GENERAL: This is a 70-year-old female patient in no acute distress. HEENT: Atraumatic, normocephalic with moist mucosal membranes. Oropharynx is clear. She has no scleral icterus. NECK: Supple, no appreciable lymphadenopathy. Trachea is midline. CHEST: Clear bilaterally. CARDIOVASCULAR: Sinus tachycardia. S1, S2. ABDOMEN: Soft, but tender to palpation, greatest in the lower abdomen/pelvis, especially deep palpation. She has no rebound or guarding. No palpable masses, no appreciable hernias. A drain is in place with purulent drainage. GENITOURINARY: Normal external female genitalia. EXTREMITIES: No clubbing, cyanosis or edema. NEUROLOGIC: Cranial nerves 2-12 grossly intact. PSYCHIATRIC: Normal mood and affect. [facility] [address] [place] [address] CONSULTATION Name: SHARON HANKS Room #: 454-P [facility] IN [place]#: [id number] Admission: 09/16/16 Attend Phys: Kuldip De León MD Discharge: Date of : 45 Report #: [id number] SKIN AND INTEGUMENTARY: No acute inflammatory changes, rashes or lesions are present. LABORATORY DATA: CBC shows a white blood cell count 12.3, hemoglobin 11.8, hematocrit 35.5 and platelets 379. Electrolytes show a sodium of 136, potassium 3.8, chloride 96, CO2 33, BUN 10, creatinine 1.1 and glucose 116. INR was 1.0. RADIOLOGIC STUDIES: CT of the abdomen and pelvis from earlier today shows worsening diverticulitis with an enlarging abscess and pelvic inflammation. The drain was located within the abscess cavity. Mucosal thickening involving the sigmoid colon was also present, likely related to severe inflammation from the diverticulitis. Drain check showed at least 1 fistulous communication with the colon and possibly as many as 2 or 3. IMPRESSION AND PLAN: This is a 70-year-old female patient with the above listed comorbidities, who has acute diverticulitis with a pelvic abscess and probable fistulae. She has worsening pain associated with this and would benefit from operative intervention. As she has been adamantly against undergoing an operation that would involve an ostomy in the past, this had not been pursued; however, it is now in the patient's best interest that she undergo an operation. She is now comfortable with moving forward with a sigmoid colectomy with possible anastomosis and protective ileostomy versus Altagracia's procedure. She is malnourished with weight loss, and according to the patient's primary care physician and family, she has very poor nutrition as she has only been drinking alcohol while at home and not taking much in the way of nutrition. I have ordered a PICC line for TPN in hopes of improving her nutrition before operating on her. Infectious disease has been consulted and they will manage the patient's antibiotic therapy. I will follow along and plan for the operation sometime next week. I sincerely appreciate the opportunity to participate in the care of this patient and will leave further recommendations and orders in the electronic medical record as appropriate. Thank you very much. <ELECTRONICALLY SIGNED> By: Nish Lobo MD, FACS 09/20/16 2320 23 [id number] Nish Lobo MD, FACS /nt
--- NOTE | ~2016-09-16 | O ---
[address] [address] OPERATIVE REPORT Name: SHARON HANKS Room #: 454-P ADM IN M.R.#: [id number] Admission: 09/16/16 Attend Phys: Kuldip De León MD Discharge: Date of : 45 Report #: [id number] THIS REPORT FOR: //name// CC: Ty Mosquera MD DATE OF SERVICE: 09/21/2016 SURGEON: Nish Lobo MD MANAGER OF SOFTWARE: Adriano Jung DO PREOPERATIVE DIAGNOSES: 1. Acute sigmoid diverticulitis with pelvic abscess formation. 2. Chronic obstructive pulmonary disease. 3. Gastroesophageal reflux disease. 4. Hypertension. 5. Depression. 6. Anxiety. 7. Alcoholism. POSTOPERATIVE DIAGNOSES: 1. Acute sigmoid diverticulitis with pelvic abscess formation. 2. Chronic obstructive pulmonary disease. 3. Gastroesophageal reflux disease. 4. Hypertension. 5. Depression. 6. Anxiety. 7. Alcoholism. PROCEDURE: 1. Exploratory laparotomy with washout and drainage of pelvic abscess. 2. Sigmoid colectomy with end descending colostomy. 2. Segmental small bowel resection. 3. Placement of topical wound VAC (Prevena). 4. Cystoscopy with bilateral external ureteral catheter placement (by Dr. Ty Avalos MD). ANESTHESIA: General endotracheal anesthesia. ESTIMATED BLOOD LOSS: 250 mL. SPECIMEN: 1. Sigmoid colon. [address] [address] OPERATIVE REPORT Name: SHARON HANKS Room #: 454-P [facility] IN [facility].#: [id number] Admission: 09/16/16 Attend Phys: Kuldip De León MD Discharge: Date of : 45 Report #: [id number] 2. Segment of distal jejunum. COMPLICATIONS: None appreciated. INDICATIONS FOR PROCEDURE: This is a 70-year-old female patient who I initially saw in late May of this year with lower abdominal pain for 8 days prior to her admission. She was found to have acute sigmoid diverticulitis with evidence of a microperforation as well as dilated loops of small bowel with air/fluid levels. The patient ultimately underwent drain placement during that hospitalization after an abscess had formed. Interventional radiology also helped to manage the drain and pulled the drain in mid July after discussing with the patient, who was adamant that the drain be removed. The patient was also very much against undergoing an operation, which could involve creation of a stoma of any sort. Three weeks after her drain was removed, the patient developed worsening pain and I saw her in clinic, during which time I sent her for a repeat CT of the abdomen and pelvis. A large pelvic abscess was identified and the patient underwent percutaneous drain placement by interventional radiology. The patient continued to have difficulty with abdominal pain and a followup CT scan showed the potential for 2-3 fistulous communications with the cavity. The patient was then admitted to [facility] and she has been placed on TPN and IV antibiotics. She continues to complain of pelvic pain. She presents now for exploratory laparotomy with sigmoid colectomy, possible colostomy, possible diverting ileostomy. OPERATIVE FINDINGS: Upon entrance into the abdominal cavity, there were adhesions deep in the pelvis. Omental adhesions were present extending inferiorly as were adhesions from the small bowel and most notably the distal jejunum. An abscess cavity was identified and the drain was located to the right of this cavity with only a small communication. It appeared that the distal most sigmoid colon/proximal rectum was most involved with the acute inflammatory change. No discrete perforation was identified in the colon or rectum. The rectosigmoid junction itself was quite thickened and inflamed. The ureteral stents placed by Dr. Ty Avalos were palpable in the retroperitoneum. The condition of the distal jejunum that was involved with the adhesions and inflammatory process in the pelvis was poor and decision was made for resection of this segment of small bowel. There were multiple serosal injuries located in this area as the adhesions were tight and difficult to take down. The anastomosis was without tension and the opening was palpably patent. No other significant pathology was identified. The small bowel was run from the terminal ileum to the ligament of Treitz and back. The sigmoid colon was slightly dilated without evidence for acute inflammation in the area of the colostomy. After maturing the colostomy, the stoma itself was palpably patent beyond the fascial level. No other significant intraabdominal pathology was identified. At the conclusion of the operation, the sponge, needle, and instrument counts were correct. [address] [address] OPERATIVE REPORT Name: DEMARIOSHARON GAIL Room #: 454-P [facility] IN M.R.#: [id number] Admission: 09/16/16 Attend Phys: Kuldip De León MD Discharge: Date of : 45 Report #: [id number] DESCRIPTION OF PROCEDURE IN DETAIL: After the benefits and risks of the operation were explained to the patient, informed consent was obtained. The patient was identified in the preoperative holding area. She was taken to the operating room and she was placed in a supine position. SCDs were placed on the patient's bilateral lower extremities and pneumatic compression was initiated. The patient was then given IV sedation and she was intubated without incident. She was placed in the low lying dorsal lithotomy position in [facility]. Dr. Avalos performed his portion of the operation first. Please see his dictation for details. After completion of the bilateral ureteral stent placement, the patient's abdomen was prepped and draped in the standard sterile fashion. A sharp #10 blade scalpel was used to make a vertical midline incision around the umbilicus on the right and down to the lower abdomen. Electrocautery was used to dissect through the subcutaneous tissue down to the fascia. The fascia was then opened along the length of the incision. The omental adhesions to the pelvis were carefully taken down and the omentum was lifted out of the abdominal cavity. Small bowel was adherent in the pelvis as well. While dissecting, the pus pocket was encountered and cultures were taken x 2 to be sent for aerobes, anaerobes, and fungus. The small bowel was dissected free off the area of inflammation with appropriate traction and Metzenbaum scissors. The small bowel was then run from the ileocecal valve to the ligament of Treitz and backwards. The area of small bowel involvement was quite evident. This would be resected later. Dissection was carried out in the pelvis along the pericolic gutter medially and laterally. An appropriate area was chosen for transection of the colon at the rectosigmoid junction. A mesenteric window was made posteriorly. The green load contour stapler was then used to staple and divide the colon in this area. The pelvis was then irrigated and suctioned and return of all drainage ran clear. The pigtail drain placed by interventional radiology was clearly seen within the abscess cavity. An appropriate area was chosen for the end descending colostomy. The mesentery was divided up to that level with the Ethicon X1 advanced energy device. Dissection was carried along the white line of Toldt as well to further mobilize the colon. The colon was divided in this area with a blue load KATHRINE stapler. The segment of sigmoid colon was removed to be sent for specimen. A suture was placed on the proximal staple line. The small bowel was then run from the ileocecal valve proximally. The segment of distal jejunum with the denuded serosa was then excised. Mesenteric windows were made proximally and distally and a blue load KATHRINE stapler was used to staple and divide the bowel in each area. The mesentery was then divided with the Ethicon X1 advanced energy device with good hemostasis. The segment of distal jejunum was sent for specimen, again marking the proximal staple line with a suture. The [id number] functional end-to-end stapled small bowel anastomosis was then created. The antimesenteric corners of the bowel were [facility] [address] [place] [address] OPERATIVE REPORT Name: SHARON HANKS Room #: 454-P [facility] IN [facility]#: [id number] Admission: 09/16/16 Attend Phys: Kuldip De León MD Discharge: Date of : 45 Report #: [id number] approximated with a 3-0 PDS suture. The antimesenteric corners of the staple line were then each excised and each limb of the blue load 75 mm KATHRINE stapler was advanced into each limb of the bowel. The stapler was connected and fired on the antimesenteric side. The stapler was then removed. The common entero-enterotomy was clamped with Allis clamps. A blue load [place] stapler was then used to staple off the common entero-enterotomy and the excess tissue was excised. The stapler was released. A 3-0 PDS suture was placed at the crotch of the anastomosis to reinforce the anastomosis as an anti-tension suture. The mesenteric window was closed with a running 3-0 PDS suture. Interrupted 3-0 PDS Lembert sutures were used to imbricate the common entero-enterotomy staple line. The anastomosis was palpably patent. The abdominal cavity was then copiously irrigated and suctioned until all drainage ran clear. A 19-Iranian ALPA drain was placed within the abdominal cavity and brought out through a stab wound in the right abdomen. The drain was secured to the skin with a 2-0 nylon suture. The drain was positioned intraabdominally to drain the pelvis and extend up to the left pericolic gutter. A 3-0 Prolene sutures were placed on each corner of the rectal stump. The nasogastric tube was palpated to optimize its placement and position. A circular left abdominal skin incision was then created with a Rudy clamp on the skin and a sharp #10 blade scalpel. This was placed in an area that had been previously marked by the enterostomal nurse. Bleeding points were made hemostatic with electrocautery. Dissection was then carried down to the left anterior rectus sheath fascia. The fascia was opened and the underlying longitudinal running rectus abdominis muscles were split. The posterior fascia was then opened and dilated to 3 fingers. A Kannan clamp was used to advance the stapled off end of descending colon through the circular opening. The mesenteric orientation was maintained. After ensuring final hemostasis within the abdominal cavity, Interceed was placed to cover the omentum and surrounding the colostomy. After ensuring that the sponge, needle, and instrument counts were correct, the midline abdominal wall fascia was closed with a running looped #1PDS suture. The wound was irrigated. Gasper were used to close the skin. The colostomy was matured next. The staple line was excised and bleeding points were made hemostatic with electrocautery. Interrupted Rosalie-type 3-0 Vicryl sutures were placed at the 12, 3, 6, and 9:00 positions. Short runs of 3-0 Vicryl in each quadrant were then used to complete the maturation process. The stoma was palpably patent beyond the fascial level. The Prevena topical wound VAC dressing was applied and connected to the portable suction device. A good seal was present. The colostomy appliance was then tailored and placed over the stoma. The ureteral stents placed by Dr. Avalos and percutaneous drain placed by interventional radiology were both removed without difficulty. The patient tolerated the procedure well. She was [address] [address] OPERATIVE REPORT Name: DEMARIOSHARONLEANNE CHISHOLM Room #: 454-P [facility] IN M.R.#: [id number] Admission: 09/16/16 Attend Phys: Kuldip De León MD Discharge: Date of : 45 Report #: [id number] awakened, extubated, and taken to the recovery room in stable condition with no apparent intraoperative complications. <ELECTRONICALLY SIGNED> By: Nish Lobo MD, FACS 09/22/16 0559 [id number] Nish Lobo MD, FACS /nt
[2016-09-16 09:25] LABS: HEMATOCRIT 35.5 % (37.0-47.0); HEMOGLOBIN 11.8 gm/dL (12.0-15.0); MCH 30.6 pg (26.0-34.0); MCHC 33.4 g/dL (28.0-37.0); MCV 91.8 fL (80.0-100.0); RBC 3.87 mil/uL (4.20-5.00); RDW 13.7 % (10.5-14.5); WBC 12.2 thou/uL (4.0-11.0)
[2016-09-16 09:34] LABS: CALCIUM 9.6 mg/dL (8.5-10.1); CREATININE 1.1 mg/dL (0.6-1.0); POTASSIUM 3.8 mmol/L (3.5-5.1)
[2016-09-16 09:44] VITALS: BP 83/51
[2016-09-16 09:44] LABS: PROTIME 9.3 Seconds (9.3-11.4)
[2016-09-16 15:57] VITALS: BP 83/51
[2016-09-16 17:33] VITALS: BP 175/105
[2016-09-16 20:18] VITALS: BP 175/105
[2016-09-17] VITALS (7 sets, daily range): BP systolic 148–166; BP diastolic 79–96
[2016-09-17 05:50] LABS: URINE BILIRUBIN NEGATIVE (Negative); URINE BLOOD NEGATIVE (Negative); URINE COLOR YELLOW; URINE GLUCOSE-RANDOM* NEGATIVE (Negative); URINE KETONES NEGATIVE (Negative); URINE LEUKOCYTES-REFLEX NEGATIVE (Negative); URINE PROTEIN (DIPSTICK) NEGATIVE (Negative); URINE UROBILINOGEN 0.2 E.U./dl (0.2-1.0)
[2016-09-17 06:56] LABS: ABSOLUTE NEUTROPHILS 5.6 thou/uL (1.4-8.2); BASOPHILS 0.4 % (0.0-2.0); EOSINOPHILS 1.6 % (0.0-3.0); HEMATOCRIT 33.8 % (37.0-47.0); HEMOGLOBIN 11.1 gm/dL (12.0-15.0); LYMPHOCYTES 14.2 % (24.0-44.0); MCH 30.5 pg (26.0-34.0); MCHC 32.8 g/dL (28.0-37.0); MONOCYTES 6.7 % (1.0-8.0); PLATELET COUNT 327 thou/uL (150-400); POLYS 77.1 % (36.0-66.0); RBC 3.64 mil/uL (4.20-5.00); RDW 13.9 % (10.5-14.5); WBC 7.2 thou/uL (4.0-11.0)
[2016-09-17 07:04] LABS: MANUAL DIFF NO
[2016-09-17 07:05] LABS: DIRECT BILIRUBIN < 0.1 mg/dL (<0.1-0.3); MAGNESIUM 1.6 mg/dL (1.8-2.4)
[2016-09-17 07:13] LABS: ALBUMIN 2.7 g/dL (3.4-5.0); CALCIUM 8.9 mg/dL (8.5-10.1); CREATININE 0.8 mg/dL (0.6-1.0); TOTAL BILIRUBIN 0.3 mg/dL (<0.1-1.0); TOTAL PROTEIN 7.3 g/dL (6.4-8.2)
[2016-09-17 07:58] LABS: PHOSPHORUS 3.6 mg/dL (2.5-4.9)
[2016-09-18 04:00] VITALS: BP 153/99
[2016-09-18 05:10] LABS: ABSOLUTE NEUTROPHILS 4.9 thou/uL (1.4-8.2); BASOPHILS 0.3 % (0.0-2.0); EOSINOPHILS 2.6 % (0.0-3.0); HEMATOCRIT 30.7 % (37.0-47.0); HEMOGLOBIN 10.4 gm/dL (12.0-15.0); LYMPHOCYTES 14.3 % (24.0-44.0); MCHC 33.8 g/dL (28.0-37.0); MCV 91.7 fL (80.0-100.0); MONOCYTES 7.5 % (1.0-8.0); PLATELET COUNT 302 thou/uL (150-400); POLYS 75.3 % (36.0-66.0); RBC 3.35 mil/uL (4.20-5.00); RDW 13.6 % (10.5-14.5); WBC 6.6 thou/uL (4.0-11.0)
[2016-09-18 05:32] LABS: MANUAL DIFF NO
[2016-09-18 06:06] LABS: ALBUMIN 2.3 g/dL (3.4-5.0); CALCIUM 8.8 mg/dL (8.5-10.1); CREATININE 0.8 mg/dL (0.6-1.0); MAGNESIUM 1.8 mg/dL (1.8-2.4); PHOSPHORUS 3.6 mg/dL (2.5-4.9); POTASSIUM 3.6 mmol/L (3.5-5.1); TOTAL BILIRUBIN 0.2 mg/dL (<0.1-1.0)
[2016-09-18 07:22] VITALS: BP 148/84
[2016-09-18 11:21] VITALS: BP 145/91
[2016-09-18 15:24] VITALS: BP 160/91
[2016-09-18 19:45] VITALS: BP 151/99
[2016-09-19 04:55] VITALS: BP 149/87
[2016-09-19 05:26] LABS: HEMATOCRIT 31.1 % (37.0-47.0); HEMOGLOBIN 10.3 gm/dL (12.0-15.0); MCH 30.2 pg (26.0-34.0); MCHC 33.2 g/dL (28.0-37.0); MCV 90.9 fL (80.0-100.0); RBC 3.42 mil/uL (4.20-5.00); RDW 13.8 % (10.5-14.5)
[2016-09-19 05:40] LABS: ALBUMIN 2.2 g/dL (3.4-5.0); CALCIUM 8.4 mg/dL (8.5-10.1); CREATININE 0.8 mg/dL (0.6-1.0); MAGNESIUM 1.8 mg/dL (1.8-2.4); PHOSPHORUS 3.7 mg/dL (2.5-4.9); POTASSIUM 3.4 mmol/L (3.5-5.1); TOTAL BILIRUBIN 0.2 mg/dL (<0.1-1.0); TOTAL PROTEIN 6.9 g/dL (6.4-8.2)
[2016-09-19 07:23] VITALS: BP 146/86
[2016-09-19 11:16] VITALS: BP 148/87
[2016-09-19 15:12] VITALS: BP 156/83
[2016-09-19 19:18] VITALS: BP 128/79
[2016-09-20 03:20] VITALS: BP 137/83
[2016-09-20 06:16] LABS: ABSOLUTE NEUTROPHILS 8.3 thou/uL (1.4-8.2); BASOPHILS 0.2 % (0.0-2.0); HEMATOCRIT 31.7 % (37.0-47.0); HEMOGLOBIN 10.5 gm/dL (12.0-15.0); LYMPHOCYTES 9.7 % (24.0-44.0); MCH 30.7 pg (26.0-34.0); MCHC 33.2 g/dL (28.0-37.0); MCV 92.4 fL (80.0-100.0); MONOCYTES 10.9 % (1.0-8.0); PLATELET COUNT 331 thou/uL (150-400); POLYS 76.2 % (36.0-66.0); RBC 3.43 mil/uL (4.20-5.00); RDW 13.8 % (10.5-14.5); WBC 10.9 thou/uL (4.0-11.0)
[2016-09-20 06:20] LABS: MANUAL DIFF NO
[2016-09-20 06:31] LABS: CALCIUM 8.5 mg/dL (8.5-10.1); CREATININE 0.7 mg/dL (0.6-1.0); PHOSPHORUS 4.2 mg/dL (2.5-4.9); POTASSIUM 3.7 mmol/L (3.5-5.1)
[2016-09-20 07:28] VITALS: BP 152/80
[2016-09-20 12:04] VITALS: BP 138/87
[2016-09-20 15:46] VITALS: BP 157/99
[2016-09-20 19:20] VITALS: BP 140/78
[2016-09-21 04:23] VITALS: BP 146/86
[2016-09-21 07:27] VITALS: BP 154/91
[2016-09-21 13:27] VITALS: BP 145/89
[2016-09-21 14:07] VITALS: BP 164/87
[2016-09-21 23:56] VITALS: BP 156/93
[2016-09-22 03:45] VITALS: BP 148/88
[2016-09-22 05:44] LABS: CALCIUM 8.3 mg/dL (8.5-10.1); CREATININE 0.8 mg/dL (0.6-1.0); PHOSPHORUS 3.6 mg/dL (2.5-4.9)
[2016-09-22 07:12] LABS: HEMATOCRIT 29.8 % (37.0-47.0); HEMOGLOBIN 9.8 gm/dL (12.0-15.0); MCH 30.6 pg (26.0-34.0); MCV 92.9 fL (80.0-100.0); RBC 3.2 mil/uL (4.20-5.00); RDW 13.9 % (10.5-14.5); WBC 16.2 thou/uL (4.0-11.0)
[2016-09-22 07:25] VITALS: BP 154/76
[2016-09-22 11:23] VITALS: BP 148/82
[2016-09-22 15:14] VITALS: BP 120/69
[2016-09-22 19:34] VITALS: BP 111/55
[2016-09-23 04:52] VITALS: BP 98/73
[2016-09-23 07:35] VITALS: BP 114/64
[2016-09-23 07:58] LABS: HEMATOCRIT 26.2 % (37.0-47.0); HEMOGLOBIN 8.6 gm/dL (12.0-15.0); MCH 30.9 pg (26.0-34.0); MCV 93.6 fL (80.0-100.0); RBC 2.8 mil/uL (4.20-5.00); RDW 14.2 % (10.5-14.5); WBC 10.7 thou/uL (4.0-11.0)
[2016-09-23 08:11] LABS: ANION GAP < 0 mmol/L (7-16); BUN 19 mg/dL (7-18); CALCIUM 8.6 mg/dL (8.5-10.1); CHLORIDE 104 mmol/L (98-107); CO2 35 mmol/L (21-32); CREATININE 0.8 mg/dL (0.6-1.0); GLUCOSE 113 mg/dL (74-106); POTASSIUM 5.3 mmol/L (3.5-5.1); SODIUM 138 mmol/L (136-145)
[2016-09-23 11:50] VITALS: BP 126/68
[2016-09-23 16:08] VITALS: BP 142/76
[2016-09-23 19:43] VITALS: BP 138/90
[2016-09-24 04:07] VITALS: BP 148/77
[2016-09-24 05:37] LABS: ABSOLUTE NEUTROPHILS 5.9 thou/uL (1.4-8.2); BASOPHILS 0.1 % (0.0-2.0); EOSINOPHILS 2.7 % (0.0-3.0); HEMOGLOBIN 8.7 gm/dL (12.0-15.0); LYMPHOCYTES 12.9 % (24.0-44.0); MCH 30.9 pg (26.0-34.0); MCHC 33.5 g/dL (28.0-37.0); MCV 92.2 fL (80.0-100.0); MONOCYTES 11.2 % (1.0-8.0); PLATELET COUNT 312 thou/uL (150-400); POLYS 73.1 % (36.0-66.0); RBC 2.82 mil/uL (4.20-5.00); RDW 14.3 % (10.5-14.5); WBC 8.1 thou/uL (4.0-11.0)
[2016-09-24 05:41] LABS: MANUAL DIFF NO
[2016-09-24 05:48] LABS: CALCIUM 8.7 mg/dL (8.5-10.1); CREATININE 0.7 mg/dL (0.6-1.0); MAGNESIUM 1.8 mg/dL (1.8-2.4); PHOSPHORUS 3.8 mg/dL (2.5-4.9); POTASSIUM 4.5 mmol/L (3.5-5.1)
[2016-09-24 07:38] VITALS: BP 155/78
[2016-09-24 11:08] VITALS: BP 149/75
[2016-09-24 14:22] VITALS: BP 149/75
[2016-09-24 15:05] VITALS: BP 176/94
[2016-09-24 19:12] VITALS: BP 172/89
[2016-09-25 06:06] VITALS: BP 152/83
[2016-09-25 06:29] LABS: ABSOLUTE NEUTROPHILS 5.3 thou/uL (1.4-8.2); BASOPHILS 0.3 % (0.0-2.0); EOSINOPHILS 4.1 % (0.0-3.0); HEMATOCRIT 26.2 % (37.0-47.0); HEMOGLOBIN 8.7 gm/dL (12.0-15.0); MCH 30.3 pg (26.0-34.0); MCHC 33.1 g/dL (28.0-37.0); MCV 91.6 fL (80.0-100.0); MONOCYTES 10.2 % (1.0-8.0); PLATELET COUNT 333 thou/uL (150-400); POLYS 71.4 % (36.0-66.0); RBC 2.86 mil/uL (4.20-5.00); WBC 7.5 thou/uL (4.0-11.0)
[2016-09-25 06:32] LABS: MANUAL DIFF NO
[2016-09-25 06:41] LABS: CALCIUM 8.8 mg/dL (8.5-10.1); CREATININE 0.6 mg/dL (0.6-1.0); POTASSIUM 4.3 mmol/L (3.5-5.1)
[2016-09-25 08:38] VITALS: BP 134/73
[2016-09-25 14:35] VITALS: BP 132/85
[2016-09-25 16:57] VITALS: BP 133/88
[2016-09-25 19:17] VITALS: BP 155/76
[2016-09-26 03:30] VITALS: BP 166/86
[2016-09-26 06:28] LABS: HEMATOCRIT 26.6 % (37.0-47.0); HEMOGLOBIN 8.6 gm/dL (12.0-15.0); MCHC 32.4 g/dL (28.0-37.0); MCV 92.7 fL (80.0-100.0); RBC 2.87 mil/uL (4.20-5.00); RDW 13.8 % (10.5-14.5); WBC 6.6 thou/uL (4.0-11.0)
[2016-09-26 06:38] LABS: ALBUMIN 2.2 g/dL (3.4-5.0); CALCIUM 8.6 mg/dL (8.5-10.1); CREATININE 0.6 mg/dL (0.6-1.0); POTASSIUM 4.4 mmol/L (3.5-5.1); TOTAL BILIRUBIN 0.2 mg/dL (<0.1-1.0); TOTAL PROTEIN 7.1 g/dL (6.4-8.2)
[2016-09-26 07:14] VITALS: BP 159/102
[2016-09-26 11:56] VITALS: BP 132/101
[2016-09-26 16:06] VITALS: BP 141/75
[2016-09-26 20:49] VITALS: BP 135/83
[2016-09-27 04:43] VITALS: BP 153/91
[2016-09-27 06:04] LABS: ABSOLUTE NEUTROPHILS 4.8 thou/uL (1.4-8.2); BASOPHILS 0.5 % (0.0-2.0); EOSINOPHILS 4.8 % (0.0-3.0); HEMATOCRIT 27.8 % (37.0-47.0); HEMOGLOBIN 9.1 gm/dL (12.0-15.0); LYMPHOCYTES 16.2 % (24.0-44.0); MCHC 32.6 g/dL (28.0-37.0); MCV 92.1 fL (80.0-100.0); MONOCYTES 11.9 % (1.0-8.0); PLATELET COUNT 375 thou/uL (150-400); POLYS 66.6 % (36.0-66.0); RBC 3.02 mil/uL (4.20-5.00); RDW 14.4 % (10.5-14.5); WBC 7.1 thou/uL (4.0-11.0)
[2016-09-27 06:12] LABS: CALCIUM 9.1 mg/dL (8.5-10.1); CREATININE 0.6 mg/dL (0.6-1.0); MANUAL DIFF NO; POTASSIUM 4.5 mmol/L (3.5-5.1)
[2016-09-27 08:22] VITALS: BP 159/82
[2016-09-27 11:40] VITALS: BP 157/76
[2016-09-27 15:12] VITALS: BP 153/80
[2016-09-27 19:57] VITALS: BP 152/101
[2016-09-28 05:26] VITALS: BP 140/77
[2016-09-28 06:23] LABS: CALCIUM 8.8 mg/dL (8.5-10.1); CREATININE 0.8 mg/dL (0.6-1.0); MAGNESIUM 1.9 mg/dL (1.8-2.4); PHOSPHORUS 3.5 mg/dL (2.5-4.9); POTASSIUM 4.3 mmol/L (3.5-5.1)
[2016-09-28 09:00] VITALS: BP 152/83
[2016-09-28 10:59] VITALS: BP 148/87
[2016-09-28 16:24] VITALS: BP 144/84
[2016-09-28 20:25] VITALS: BP 140/74
[2016-09-29 03:57] VITALS: BP 150/85
[2016-09-29 08:10] VITALS: BP 152/93
[2016-09-29 11:20] VITALS: BP 164/95
[2016-09-29 15:42] VITALS: BP 142/92
[2016-09-29 19:24] VITALS: BP 132/78
[2016-09-30 04:14] VITALS: BP 158/93
[2016-09-30 05:43] LABS: ABSOLUTE NEUTROPHILS 4.1 thou/uL (1.4-8.2); BASOPHILS 0.5 % (0.0-2.0); EOSINOPHILS 5.3 % (0.0-3.0); HEMATOCRIT 27.8 % (37.0-47.0); HEMOGLOBIN 9.1 gm/dL (12.0-15.0); MCH 30.3 pg (26.0-34.0); MCHC 32.9 g/dL (28.0-37.0); MCV 92.2 fL (80.0-100.0); MONOCYTES 11.4 % (1.0-8.0); PLATELET COUNT 431 thou/uL (150-400); POLYS 62.8 % (36.0-66.0); RBC 3.01 mil/uL (4.20-5.00); RDW 15.3 % (10.5-14.5); WBC 6.6 thou/uL (4.0-11.0)
[2016-09-30 05:44] LABS: MANUAL DIFF NO
[2016-09-30 05:54] LABS: CALCIUM 8.9 mg/dL (8.5-10.1); CREATININE 0.8 mg/dL (0.6-1.0); MAGNESIUM 1.8 mg/dL (1.8-2.4); POTASSIUM 3.8 mmol/L (3.5-5.1)
[2016-09-30 07:45] VITALS: BP 149/110
[2016-09-30] MEDS ORDERED: FLUCONAZOL40 MG/1 ML PO (10:56)
[2016-09-30] MEDS ORDERED: HYDROCODONE-AP1 EAC6 PO (10:56)
[2016-09-30] MEDS ORDERED: NYSTATIN 1100000 U/M SWISH&SPIT (10:56)
[2016-09-30] MEDS ORDERED: FAMCICLOVIR250 MG PO (10:56)
[2016-09-30] MEDS ORDERED: AUGMENTIN 875875 MG PO (10:59)
[2016-09-30 11:51] VITALS: BP 146/65
[2016-09-30 15:17] VITALS: BP 149/75
== END 2016-09-30 16:21 | disposition home health service (06) | DRG 853 ==
LOC: EROBS 15:11 → 4W 15:11 → CAT 15:13 → 4W 15:49
PROVIDERS: Emergency Medicine; Family Medicine; Hospitalist; Internal Medicine; Internal Medicine Endocrinology, Diabetes & Metabolism; Radiology Vascular & Interventional Radiology; Specialist; Surgery
DX: A41.9 Sepsis, unspecified organism (principal); E43 Unspecified severe protein-calorie malnutrition; R65.21 Severe sepsis with septic shock; K57.20 Diverticulitis of large intestine with perforation and abscess without bleeding; B37.0 Candidal stomatitis; J44.9 Chronic obstructive pulmonary disease, unspecified; F32.9 Major depressive disorder, single episode, unspecified; F41.9 Anxiety disorder, unspecified; E78.00 Pure hypercholesterolemia, unspecified; I10 Essential (primary) hypertension; F10.21 Alcohol dependence, in remission; F17.210 Nicotine dependence, cigarettes, uncomplicated; R53.81 Other malaise; N73.9 Female pelvic inflammatory disease, unspecified; K21.9 Gastro-esophageal reflux disease without esophagitis; K57.30 Diverticulosis of large intestine without perforation or abscess without bleeding; E87.5 Hyperkalemia; K12.30 Oral mucositis (ulcerative), unspecified; Z68.24 Body mass index [BMI] 24.0-24.9, adult
CPT/HCPCS: 10045; 27000; 50010; 50093; 50101; 50290; 50331; 50386; 50455; 50478; 50953; 51412; 51435; 51708; 51712; 56524; 56525; 56526; 56527; 56530; 56674; 56771; 57092; 62110; 62900; 70005

== ENCOUNTER → 2016-11-11 | Outpatient (CLI) | payer OTHER ==
[~2016-11-11] MED LIST changes: +FAMCICLOVIR250 MG PO; +FLUCONAZOL40 MG/1 ML PO; +HYDROCODONE-AP1 EAC6 PO; +NYSTATIN 1100000 U/M SWISH&SPIT
[2016-11-11 14:09] LABS: CREATININE 1.1 mg/dL (0.6-1.0)
== END ==
LOC: LABMALL 13:34
PROVIDERS: Family Medicine
DX: R10.9 Unspecified abdominal pain (principal)

== ENCOUNTER → 2016-11-12 | Outpatient (CLI) | payer OTHER ==
[~2016-11-12] VITALS: Ht 162.6 cm; Wt 60.3 kg
[2016-11-12] VITALS (9 sets, daily range): BP systolic 132–166; BP diastolic 75–90
== END | disposition home or self-care (01) ==
LOC: SPEC 06:27
DX: N73.8 Other specified female pelvic inflammatory diseases (principal); K57.30 Diverticulosis of large intestine without perforation or abscess without bleeding; I10 Essential (primary) hypertension; J44.9 Chronic obstructive pulmonary disease, unspecified; E78.00 Pure hypercholesterolemia, unspecified; F17.210 Nicotine dependence, cigarettes, uncomplicated; Z79.2 Long term (current) use of antibiotics; Z72.89 Other problems related to lifestyle; Z79.899 Other long term (current) drug therapy

== ENCOUNTER → 2016-11-17 | Outpatient (CLI) | payer OTHER | LOC: CAT 08:11 → EDSTATUS 09:58 → CAT 10:01 | DX: K65.1 Peritoneal abscess (principal); R10.9 Unspecified abdominal pain ==

== ENCOUNTER → 2016-12-29 | Outpatient (CLI) | payer OTHER ==
[2016-12-29 09:39] LABS: CREATININE 0.8 mg/dL (0.6-1.0)
== END ==
LOC: CAT
PROVIDERS: Surgery
DX: K57.30 Diverticulosis of large intestine without perforation or abscess without bleeding (principal); N73.9 Female pelvic inflammatory disease, unspecified; T85.638A Leakage of other specified internal prosthetic devices, implants and grafts, initial encounter; Z90.49 Acquired absence of other specified parts of digestive tract; Z93.2 Ileostomy status

== ENCOUNTER → 2017-02-02 | Outpatient (CLI) | payer OTHER ==
[~2017-02-02] MED LIST changes: +ANORO ELLIPTA1 EACH INH; +AUGMENTIN 875-1 EACH PO; +BACTRIM DS TAB1 EACH PO; +OCUVITE SOFTGE1 EAC1 PO; +SENNA-S TABLET1 EACH PO
[2017-02-02 09:55] VITALS: BP 146/80
== END | disposition home or self-care (01) ==
LOC: SPEC 06:21
DX: T85.638A Leakage of other specified internal prosthetic devices, implants and grafts, initial encounter (principal); J44.9 Chronic obstructive pulmonary disease, unspecified; I10 Essential (primary) hypertension; K21.9 Gastro-esophageal reflux disease without esophagitis; F17.210 Nicotine dependence, cigarettes, uncomplicated

== ENCOUNTER → 2017-02-08 | Outpatient (CLI) | payer OTHER ==
[~2017-02-08] VITALS: Ht 162.6 cm; Wt 59.0 kg
[2017-02-08 09:40] VITALS: BP 182/99
== END | disposition home or self-care (01) ==
LOC: SPEC 09:34
DX: Z48.03 Encounter for change or removal of drains (principal); T81.4XXA Infection following a procedure, initial encounter; I10 Essential (primary) hypertension; J44.9 Chronic obstructive pulmonary disease, unspecified; E78.00 Pure hypercholesterolemia, unspecified; K21.9 Gastro-esophageal reflux disease without esophagitis; F17.210 Nicotine dependence, cigarettes, uncomplicated; Z98.0 Intestinal bypass and anastomosis status; Z79.899 Other long term (current) drug therapy; Z98.890 Other specified postprocedural states

== ENCOUNTER → 2017-02-10 | Outpatient (CLI) | payer OTHER ==
--- NOTE | ~2017-02-10 | HC ---
[facility] [place] [address] [address] CONSULTATION Name: SHARON HANKS Room #: REG [facility] [place]#: [id number] Admission: 02/10/17 Attend Phys: Ricardo Marlow Discharge: Date of : 45 Report #: [id number] THIS REPORT FOR: //name// CC: Ricardo Lobo MD DATE OF SERVICE: 02/10/2017 HISTORY OF PRESENT ILLNESS: The patient is a 71-year-old white woman known to me from previous hospitalization at [facility] on 05/2016 and 09/2016 when she was diagnosed to have diverticular abscess. She did receive treatment with parenteral antibiotics. I believe the patient had failed to follow up with me. Apparently, she still has a percutaneous drain that is going through the right gluteal area. The percutaneous drain accidentally pulled and was replaced by Dr. Kevin Guevara on 02/08/2017. If cultures were obtained during that particular time were obtained, those are not available to me. Apparently, this patient had cultures obtained of the diverticular abscess, obtained on 01/10/2017 and resulted on 01/17/2017, revealing growth of Pseudomonas aeruginosa, 2 morphotypes as well as Klebsiella oxytoca and methicillin-resistant Staphylococcus aureus. The Pseudomonas aeruginosa organisms were sensitive to Cipro, the Klebsiella oxytoca sensitive to Bactrim, so was the methicillin-resistant Staphylococcus aureus. The patient apparently was until recently been on treatment with Bactrim DS b.i.d. Prescription for Cipro was also given to the patient, but she was advised to stop this antibiotic. The patient is also on treatment with Lactobacillus acidophilus as well as paroxetine and buspirone. REVIEW OF SYSTEMS: The patient denies nausea, vomiting. She has a colostomy putting out semi-liquid stools. Denies having had fevers or night sweats. The patient has been visiting with Dr. Lobo who has prescribed her antibiotics of lately. OBJECTIVE: GENERAL: This is a well-developed woman, not toxic looking. VITAL SIGNS: BP 158/92, pulse 115, temperature 97.8, O2 saturation 92% on room air. HEENMT: Within range. NECK: Supple. LUNGS: Clear. HEART: S1, S2. No gallop or murmur. ABDOMEN: Surgical scar, soft, no masses or megaly. Left-sided colostomy. On the right gluteal area, there is a percutaneous drain that is draining a thin pus. Culture is taken. [facility] [address] [place] [address] CONSULTATION Name: SHARON HANKS Room #: REG [facility].#: [id number] Admission: 02/10/17 Attend Phys: Ricardo Marlow Discharge: Date of : 45 Report #: [id number] ASSESSMENT: 1. Persistent pelvic abscess, status post recent replacement of percutaneous drain. 2. Evidence of infection with pseudomonas, Klebsiella oxytoca and methicillin-resistant Staphylococcus aureus. 3. Diverting colostomy. 4. History of diverticular abscess. 5. Noncompliance. SUGGESTIONS: Recommend to obtain routine culture of diverticular abscess output. Obtain CBC, ESR and CMP. Prescribed Bactrim DS p.o. b.i.d. #20 and Cipro 750 mg p.o. b.i.d. #20. Follow up in 7 days. <ELECTRONICALLY SIGNED> By: Ricardo Mosquera MD 02/11/17 1433 1131 [id number] Ricardo Mosquera MD /nt
[2017-02-10 12:01] LABS: HEMATOCRIT 36.3 % (37.0-47.0); HEMOGLOBIN 11.6 gm/dL (12.0-15.0); MCHC 31.8 g/dL (28.0-37.0); MCV 84.8 fL (80.0-100.0); PLATELET COUNT 314 thou/uL (150-400); RBC 4.28 mil/uL (4.20-5.00); RDW 16.2 % (10.5-14.5); WBC 12.2 thou/uL (4.0-11.0)
[2017-02-10 12:23] LABS: ALBUMIN 3.2 g/dL (3.4-5.0); ANION GAP 4 mmol/L (7-16); BUN 8 mg/dL (7-18); CALCIUM 9.4 mg/dL (8.5-10.1); CHLORIDE 96 mmol/L (98-107); CO2 35 mmol/L (21-32); CREATININE 0.8 mg/dL (0.6-1.0); GLUCOSE 103 mg/dL (74-106); SGOT 21 U/L (15-37); SGPT 20 U/L (30-65); TOTAL BILIRUBIN 0.4 mg/dL (<0.1-1.0); TOTAL PROTEIN 8.1 g/dL (6.4-8.2)
[2017-02-10 12:49] LABS: SODIUM ND mmol/L (136-145)
[2017-02-10 13:36] LABS: ABSOLUTE NEUTROPHILS 11.1 thou/uL (1.4-8.2)
[2017-02-10 13:39] LABS: ANISOCYTOSIS 1+
== END ==
LOC: SEN 09:34
PROVIDERS: Internal Medicine Infectious Disease
DX: N73.8 Other specified female pelvic inflammatory diseases (principal); Z93.3 Colostomy status; Z87.19 Personal history of other diseases of the digestive system

== ENCOUNTER → 2017-02-17 | Outpatient (CLI) | payer OTHER ==
--- NOTE | ~2017-02-17 | HC ---
[facility] [place] [place] [address] [place] [address] CONSULTATION Name: SHARON HANKS [id number] Admission: 02/17/17 Attend Phys: Ricardo Marlow Discharge: Date of : 45 Report #: [id number] THIS REPORT FOR: //name// CC: Ricardo Lobo MD DATE OF SERVICE: 02/17/2017 [facility] PROGRESS NOTE HISTORY OF PRESENT ILLNESS: The patient returns for followup of pelvic abscess. She denies having fevers, pain, nausea, or vomiting, remains rather anxious, she is on treatment with Bactrim-DS 1 b.i.d. and Cipro 750 p.o. b.i.d. She has 3 days left of medication. Discussed findings of laboratory test with the patient, informed that abscess revealed growth of Pseudomonas aeruginosa and MRSA. Discussed the patient's situation with Dr. Nish Lobo. OBJECTIVE: GENERAL: A well-developed woman, not toxic looking, rather anxious person. VITAL SIGNS: BP 184/88, pulse 116, temperature 98.5, weight 134, and O2 saturation 96% on room air. LUNGS: Clear. HEART: S1, S2. ABDOMEN: Soft. Colostomy working. The right gluteal ALPA catheter continues drain looking purulent material. LABORATORY DATA: On February 10, culture of the pelvic abscess revealed many Pseudomonas aeruginosa sensitive to most antibiotics, intermediate to imipenem and methicillin-resistant Staphylococcus aureus sensitive to Bactrim. Potassium 5, BUN 8, creatinine 0.8, albumin 3.2. WBC 12.2, hemoglobin 11.6, platelets 314,000. White blood cell count differential 91% segmented neutrophils. ESR 35 mm per hour. ASSESSMENT: 1. Persistent pelvic abscess due to Pseudomonas aeruginosa and methicillin-resistant Staphylococcus aureus. 2. Mild hypoalbuminemia. 3. Mild anemia. PLAN: Recommend proceeding with repeat CT scan of abdomen and pelvis with intravenous and oral contrast. We will see if we can do this CAT scan this week, did leave a message for who is not in the office today. The patient will continue oral Bactrim and Cipro. We will try to make a determination as to whether we proceed with parenteral antibiotics like [address] [address] CONSULTATION Name: DEMARIOSHARON GAIL Room #: REG [facility] Funes#: [id number] Admission: 02/17/17 Attend Phys: Ricardo Marlow Discharge: Date of : 45 Report #: [id number] vancomycin and Zosyn to speed up the healing of the process. Follow up in 7 days. <ELECTRONICALLY SIGNED> By: Ricardo Mosquera MD 02/17/17 1203 1041 1146 Ricardo Mosquera MD /nt
== END ==
LOC: SEN 09:00
DX: N73.8 Other specified female pelvic inflammatory diseases (principal); E88.09 Other disorders of plasma-protein metabolism, not elsewhere classified; D64.89 Other specified anemias

== ENCOUNTER → 2017-02-17 | Outpatient (CLI) | payer OTHER ==
[2017-02-17 11:41] LABS: CREATININE 0.9 mg/dL (0.6-1.0)
== END ==
LOC: CAT 11:00
PROVIDERS: Internal Medicine Infectious Disease
DX: K57.30 Diverticulosis of large intestine without perforation or abscess without bleeding (principal); J98.11 Atelectasis; J98.4 Other disorders of lung

== ENCOUNTER → 2017-03-03 | Outpatient (CLI) | payer OTHER | LOC: SEN 02-24 10:30 | DX: N73.8 Other specified female pelvic inflammatory diseases (principal); K63.2 Fistula of intestine; D64.9 Anemia, unspecified ==

== ENCOUNTER 2017-03-25 05:20 | Inpatient (IN) | payer OTHER ==
[~2017-03-25] VITALS: Ht 162.6 cm; Wt 64.1 kg
[2017-03-25] VITALS (10 sets, daily range): BP systolic 114–161; BP diastolic 73–90
--- NOTE | ~2017-03-25 | S ---
[facility] [place] [address] [place] [address] SURGICAL PATH RPT PROCEDURE Name: SHARON HUMPHREY Room #: 209-P ADM IN M.R.#: [id number] Admission: 03/25/17 Date of : 45 Discharge: Report #: [id number] Path Case #: [id number] PATHOLOGY REPORT COLLECTION DATE: 03/25/2017 RECEIVED DATE: 03/25/2017 SUBMITTING PHYS: Dr. Nish Lobo OTHER PHYS: Dr. Adriano Jung, DO Dr. Nay Arce SPECIMEN(S) RECEIVED: A.Rectum-suellen distal end B.Terminal ileum C.Appendix * * * * * * * * * * * * FINAL DIAGNOSIS: A. "Rectum -suellen distal end", resection: - Diverticulitis and diverticulosis with acute and chronic inflammation, focal fat necrosis and dense serosal fibrous adhesions; surgical margins with no significant inflammation. B. "Terminal ileum", resection: - Small bowel mucosa, submucosa and muscular wall with dense serosal fibrous adhesions showing mild acute and chronic inflammation and reactive changes; surgical margins with mild acute serositis and serosal reactive changes. C. "Appendix", appendectomy: - Appendix with fibrous obliteration of tip and mild acute serositis. (CLW:pit; 03/28/2017) PATHOLOGIST: Ramya Goel M.D. REPORT ELECTRONICALLY SIGNED BY: Ramya Goel M.D. DATE/TIME: 03/28/2017 21:16 * * * * * * * * * * * * GROSS PATHOLOGY: A. Received in formalin labeled "Sharon Humphrey rectum-suellen at distal end" is an oriented portion of large bowel which measures 3.8 cm in length and 3.2 cm in diameter. The proximal mucosal margin is received open and the distal mucosal margin is received closed at the staple line. The external surface is bellamy-white and fibrotic. The staple lines are removed and the specimen is serially sectioned to reveal pink bellamy mucosa and a muscle wall measuring 0.7 cm in thickness. Multiple diverticula are identified which measure from 0.3-1.0 cm in greatest dimension. No perforations, masses, or polyps [address] [address] SURGICAL PATH RPT PROCEDURE Name: SHARON HUMPHREY Room #: 209-P ADM IN ..#: [id number] Admission: 03/25/17 Date of : 45 Discharge: Report #: [id number] Path Case #: [id number] are grossly identified. Waterproof Material Folder sections are submitted as follows: A1 access services representative proximal margin A2 access services representative distal margin A3-A4 access services representative diverticula B. Received in formalin labeled "Sharon Humphrey terminal ileum" is an unoriented segment of small bowel which measures 8.6 cm in length and 3.1 cm in diameter. The specimen is received closed at the proximal and distal margins with staple lines. The serosa is pink-bellamy and ragged with adhesions. The bowel is adhesed to itself over a 3.0 x 2.1 cm area. A transmural defect measuring 0.5 x 0.5 cm is identified, which has been closed with blue plastic sutures. The defect measures 0.7 cm to the closest mucosal margin. The specimen is opened to reveal pink bellamy mucosa with no polyps, masses, or diverticula identified. Waterproof Material Folder sections are submitted as follows: B1-B2 mucosal margins B3 area at defect B4 access services representative sections of adhesions C. Received in formalin labeled "Sharon Humphrey, appendix," is an appendix measuring 6.0 cm in length and 0.7 cm in diameter with a 6.2 x 1.2 x 1.2 amount of attached mesoappendix. The serosal surface is pink-bellamy with scant areas of adhesions. Sectioning reveals a luminal diameter of 0.2 cm and no fecaliths or perforations identified. Waterproof Material Folder sections are submitted in cassette C1, with the proximal margin inked black. ([facility] [place]; 03/27/2017) CLINICAL HISTORY: Diverticulitis, status post colostomy, intra-abdominal abscess. INITIAL CPT CODE(S): A; 63084 B; 69682 C; 45466 Professional services performed by [facility] at [address] [address] Technical services performed by [facility] at [address] [place] [address], [address], [place] [address]. [facility] [address] [place] [address] SURGICAL PATH RPT PROCEDURE Name: SHARON HUMPHREY Room #: 209-P [facility] IN M.R.#: [id number] Admission: 03/25/17 Date of : 45 Discharge: Report #: [id number] Path Case #: [id number] PHONE: [phone] DIRECTOR: Lisandro Lepe M.D. * * * END OF REPORT * * *
--- NOTE | ~2017-03-25 | HC ---
[facility] [place] [address] [place] [address] CONSULTATION Name: SHARON HANKS Room #: 239-P ADM IN M.R.#: [id number] Admission: 03/25/17 Attend Phys: Nish Lobo MD, F Discharge: Date of : 45 Report #: [id number] THIS REPORT FOR: //name// CC: Nay Lobo DATE OF SERVICE: 03/25/2017 ATTENDING PHYSICIAN: Nish Lobo MD REASON FOR CONSULTATION: Antibiotic management. HISTORY OF PRESENT ILLNESS: The patient is a 71-year-old white woman who today undergoes rectal fistula and Altagracia's procedure takedown by Dr. 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 The patient has required placement of a percutaneous drain through the right gluteal area by Dr. Kevin Hernandez on a couple of occasions. The abscess fistula was evaluated with contrast and there was evidence of communication between the catheter and the rectal stump, which was resected today. The patient is seen today in the recovery room. Consequently, she is sedated and most of this patient information is gathered from the review of records. PAST MEDICAL HISTORY: COPD. Diverticulitis complicated by diverticular abscess requiring segmental colon resection with subsequent development of colocutaneous fistula with chronic right gluteal percutaneous drain. Previous culture has revealed growth of Pseudomonas aeruginosa and methicillin-resistant Staphylococcus aureus. DRUG ALLERGIES: None listed. MEDICATIONS: The patient is started on vancomycin to be dosed by pharmacy as well as Zosyn ____ grams IV every 8 hours. She is on p.r.n., naloxone, metoclopramide, promethazine, ondansetron, Benadryl, hydromorphone, lactated Ringer's solution, famotidine, metoclopramide and ondansetron p.r.n. as well as enoxaparin subQ. SOCIAL HISTORY: See H and P, old records. FAMILY HISTORY: See H and P, old records. REVIEW OF SYSTEMS: Unable to obtain now. PHYSICAL EXAMINATION: GENERAL: Well-developed woman, not toxic looking. VITAL SIGNS: Temperature 98, pulse 111, respirations 17 and BP 114/73. HEENMT: Within range. [facility] [address] [place] [address] CONSULTATION Name: SHARON HANKS Room #: 239-P [facility].#: [id number] Admission: 03/25/17 Attend Phys: Nish Lobo MD, F Discharge: Date of : 45 Report #: [id number] NECK: Supple. LUNGS: Clear. HEART: S1 and S2. ABDOMEN: Colostomy. Wound with Prevena in place. Right-sided ALPA catheter. PELVIC AND RECTAL: Deferred. EXTREMITIES: No clubbing or cyanosis. NEUROLOGIC: Grossly within normal limits. ASSESSMENT: 1. Status post rectocutaneous fistula takedown. 2. Diverting colostomy. 3. Chronic obstructive pulmonary disease. SUGGESTIONS: Recommend obtaining culture of the ALPA fluid. CBC and CMP. Vancomycin and Zosyn for coverage of previously isolated organism. Dr. Lobo, thank you for requesting my suggestions in the care of your patient. <ELECTRONICALLY SIGNED> By: Ricardo Mosquera MD 03/28/17 1051 1337 0042 Ricardo Mosquera MD /nt
--- NOTE | ~2017-03-25 | O ---
[facility] [place] [address] OPERATIVE REPORT Name: SHARON HANKS Room #: 209-P ADM IN M.R.#: [id number] Admission: 03/25/17 Attend Phys: Nish Lobo MD, F Discharge: Date of : 45 Report #: [id number] THIS REPORT FOR: //name// CC: Nay Lobo DATE OF SERVICE: 03/25/2017 SURGEON: Nish Lobo MD CONSULTING SOFTWARE ENGINEER: Adriano Jung DO PREOPERATIVE DIAGNOSES: 1. Rectal fistula, status post Altagracia's procedure. 2. Extensive intraabdominal adhesions. 3. Chronic obstructive pulmonary disease. 4. Hypertension. 5. Anxiety/depression. 6. Gastroesophageal reflux disease. POSTOPERATIVE DIAGNOSES: 1. Rectal fistula, status post Altagracia's procedure. 2. Extensive intraabdominal adhesions. 3. Chronic obstructive pulmonary disease. 4. Hypertension. 5. Anxiety/depression. 6. Gastroesophageal reflux disease. PROCEDURES: 1. Exploratory laparotomy. 2. Partial proctectomy. 3. Segmental small bowel resection. 4. Incidental appendectomy. 5. Extensive lysis of adhesions (125 minutes). 6. Placement of Prevena topical wound VAC. 7. This is a modifier 22 operation due to the extensive adhesions present within the pelvis as well as the length of time necessary to carry out the operation. ANESTHESIA: General endotracheal anesthesia. ESTIMATED BLOOD LOSS: 300 mL SPECIMEN: Rectal stump, segment of small bowel (ileum). COMPLICATIONS: None appreciated. [facility] [place] [address] [place] [address] OPERATIVE REPORT Name: SHARON HANKS Room #: 209-P ADM IN M.R.#: [id number] Admission: 03/25/17 Attend Phys: Nish Lobo MD, F Discharge: Date of : 45 Report #: [id number] INDICATIONS FOR PROCEDURE: This is a 71-year-old female, patient of Dr. Nay Arce, who I have been following for acute sigmoid diverticulitis with abscess formation. She was hospitalized for this in the past and underwent drain placement initially by Interventional Radiology as well as treatment with IV antibiotics. The drain was being comanaged by interventional radiology, who elected to remove the drain. Her abscess recurred and the patient ultimately required a sigmoid colectomy with colostomy (Altagracia's procedure) as well as segmental small bowel resection for adhesions on 09/21/2016. Thereafter, the patient developed an intraabdominal abscess requiring drain placement, which was nearly 4 months ago. The patient was placed on a 28-day course of Augmentin. However, due to the continued purulent drainage and infection with Pseudomonas, she was switched to Cipro and Flagyl. She was followed by Dr. Ricardo Mosquera with the infectious disease service. She continues to drain purulent fluid from the indwelling drain despite appropriate antibiotic therapy based on culture and sensitivity results. Contrast study through the drain showed a fistulous communication with what appeared to be the rectum. The patient presents now for takedown of the fistula with possible revision of her colostomy. OPERATIVE FINDINGS: The patient had extensive intraabdominal adhesions as well as small bowel tightly adherent within the pelvis. The drain was identified and a discrete abscess cavity was not seen. There was significant inflammation in the pelvis, which ultimately necessitated a segmental small bowel resection after dissecting the bowel free. I checked for both a rectal stump leak after stapling off the open end of rectum as well as potential vaginal fistula, neither of which were identified. Air was insufflated into each area using the rigid proctoscope and there were no air bubbles exiting through the saline. Other than the findings mentioned above, there was no significant pathology. The patient did have a palpable appendicolith with chronic inflammatory changes; however, this was felt to be secondary to the inflammation within the abdominal cavity and pelvis. Nonetheless, I elected to remove her appendix. At the conclusion of the operation, sponge, needle, and instrument counts were correct. The patient tolerated the procedure well. She received 3300 mL of crystalloid and had urine output of 150 mL. The operation was quite difficult secondary to the extensive intraabdominal adhesions and length of time necessary to lyse the adhesions and identify the rectal fistula. DESCRIPTION OF PROCEDURE IN DETAIL: After the risks, benefits and expectations of the operation were discussed in detail with the patient, informed consent was obtained. The patient was identified in the preoperative holding area. She was given IV antibiotics as documented in the chart in line with SCIP metrics. The patient was then taken to the operating room and she was placed in the supine position. SCDs were placed on the patient's bilateral lower extremities and pneumatic compression was initiated. The patient was then given IV sedation and she was intubated without incident. A Barrera catheter was then placed within the [address] [address] OPERATIVE REPORT Name: SHARON HANKS Room #: 209-P [facility] IN M.R.#: [id number] Admission: 03/25/17 Attend Phys: Nish Lobo MD, F Discharge: Date of : 45 Report #: [id number] patient's stoma and the balloon was inflated. The patient's abdomen was prepped and draped in the standard sterile fashion. A Tegaderm was placed over the catheter. A timeout was then performed to identify the correct patient and procedure. A sharp #10 blade scalpel was used to make a vertical midline incision through the old incision around the umbilicus on the right. Electrocautery was used to dissect through the subcutaneous tissue down to the fascia. The fascia was then opened along the length of the incision. Care was taken while opening the fascia to avoid bowel. The bowel was tightly adhered to the overlying midline fascial closure. Adhesions were then freed after opening the abdominal cavity. The adhesions directly beneath the incision were completely freed. The incision was extended in a cephalad direction to gain more mobility. Extensive lysis of adhesions was then undertaken starting distally and moving proximally until I reached an area of bowel that was tightly adherent within the pelvis. I ran the bowel from the ligament of Treitz distally as well following the bowel into the pelvis. The bowel was then carefully dissected out of the pelvis. Despite the great care taken in length of time necessary to lyse the adhesions, the bowel was quite scarred with multiple serosal defects. This section of bowel would ultimately be resected. After freeing the small bowel, the Omni retractor was placed. Dissection was carried out further in the pelvis. The marking sutures of the rectal stump that were placed at her initial Altagracia's procedure operation were identified. The staple line was otherwise difficult to identify with the scar tissue present. Dissection was carried out around the rectum and perirectal tissue. An area was chosen for transection of the rectum, at least 3 cm distal to the previous rectal stump staple line. The rectum was stapled with the powered 60 mm KATHRINE stapler using blue loads. Two firings of the stapler were necessary. Due to the orientation of the rectum in this area, the staple line was oriented in an anterior to posterior fashion. 2-0 Prolene sutures were placed at the corners of the staple line (anteriorly and posteriorly). The drain was then identified. It was removed from the external side. The rectum and vagina were then tested for a fistula. The pelvis was filled with warm normal saline and air was insufflated into each of these areas. No air bubbles were seen exiting through the saline. The saline was then suctioned. A 19 Angolan drain was placed within the pelvis and brought out through a stab wound in the right abdomen. The stoma was intact. A small hernia was present with no incarceration of surrounding tissue or bowel. The appendix was identified. It was involved with the inflammatory change in the pelvis. After freeing the appendix, an appendectomy was performed. A window was made in the mesoappendix adjacent to the base of the appendix. A blue load KATHRINE stapler was then used to staple and divide the appendix. The mesoappendix was divided with the ultrasonic dissector with good hemostasis. A 3-0 PDS Z-stitch was then placed with good [address] [address] OPERATIVE REPORT Name: SHARON HANKS KATHRINE Room #: 209-P [facility] IN M.R.#: [id number] Admission: 03/25/17 Attend Phys: Nish Lobo MD, F Discharge: Date of : 45 Report #: [id number] imbrication of the staple line. The bowel was then reexamined. An area was chosen for proximal and distal transection of the bowel with blue load KATHRINE stapler. After doing so, the EnSeal energy device was used to divide the mesentery with good hemostasis. The section of ileum was removed to be sent for specimen. The antimesenteric corners of the bowel were then aligned with a 3-0 PDS suture. The antimesenteric corners of the staple lines were excised and a blue load 75 mm KATHRINE stapler was used to create the [id number], functional end-to-end anastomosis with no tension. After creating the anastomosis, the common enterotomy was grasped with Allis clamps. A blue load [place] 60 mm stapler was used to staple off the common enterotomy. The tissue was excised. A 3-0 PDS crotch suture was placed as an anti-tension suture. The mesenteric defect was closed with a running 3-0 PDS suture as well. Interrupted 3-0 PDS sutures were used to imbricate the common enterotomy staple line. The anastomosis was palpably patent. A small serosal defect was present in the transverse colon that was tightly adherent to the midline scar. Interrupted 3-0 PDS Lembert sutures were placed longitudinally to reinforce this area. The bowel was run once again starting at the ligament of Treitz and moving distally. No other pathology was identified. Interceed was placed around the rectal stump as well as covering the bowel just after copiously irrigating the abdomen and pelvis. The drain was secured to the skin with a 2-0 nylon suture. The drain was positioned intraabdominally to drain the dependent portion of the abdominal cavity. After ensuring that the sponge, needle and instrument counts were correct, the midline abdominal wall fascia was closed with a running looped #1 PDS suture directly over the Interceed that had been applied to help prevent significant adhesion formation. The wound was irrigated. The skin was closed with suellen. Skin was then cleansed and dried. The Prevena topical wound VAC was then placed with good seal. A new 2 piece stoma appliance was placed after removing the Barrera catheter placed within the colostomy. The patient tolerated the procedure well. She was difficult to awaken from anesthesia and remained intubated and was transferred to the intensive care unit in stable condition having tolerated the procedure well. <ELECTRONICALLY SIGNED> By: Nish Lobo MD, FACS 03/31/17 1318 0044 0148 Nish Lobo MD, FACS /nt
[~2017-03-25 05:20] MED LIST changes: -AUGMENTIN 875-1 EACH PO; -SENNA-S TABLET1 EACH PO
[2017-03-25 14:34] LABS: ABSOLUTE NEUTROPHILS 7.9 thou/uL (1.4-8.2); BASOPHILS 0.3 % (0.0-2.0); EOSINOPHILS 0.1 % (0.0-3.0); HEMATOCRIT 38.3 % (37.0-47.0); LYMPHOCYTES 7.1 % (24.0-44.0); MCH 27.1 pg (26.0-34.0); MCHC 31.3 g/dL (28.0-37.0); MCV 86.6 fL (80.0-100.0); MONOCYTES 6.3 % (1.0-8.0); PLATELET COUNT 327 thou/uL (150-400); POLYS 86.2 % (36.0-66.0); RBC 4.42 mil/uL (4.20-5.00); RDW 18.6 % (10.5-14.5); WBC 9.2 thou/uL (4.0-11.0)
[2017-03-25 14:47] LABS: ALBUMIN 2.8 g/dL (3.4-5.0); CALCIUM 8.2 mg/dL (8.5-10.1); POTASSIUM 5.4 mmol/L (3.5-5.1); TOTAL BILIRUBIN 0.3 mg/dL (<0.1-1.0); TOTAL PROTEIN 6.4 g/dL (6.4-8.2)
[2017-03-25 16:29] LABS: BE(vivo) 0.8 mmol/L (-2 to +3); HCO3 30.6 mmol/L (22.0-26.0); PO2 77.6 mmHg (80.0-100.0); sO2 92.1 % (92.0-98.0)
[2017-03-25 16:30] LABS: PCO2 77.7 mmHg (35.0-45.0); pH 7.213 (7.360-7.450)
[2017-03-25 17:15] LABS: HEMATOCRIT 36.8 % (37.0-47.0); HEMOGLOBIN 11.7 gm/dL (12.0-15.0); MCH 27.3 pg (26.0-34.0); MCHC 31.9 g/dL (28.0-37.0); MCV 85.6 fL (80.0-100.0); RBC 4.3 mil/uL (4.20-5.00); RDW 18.4 % (10.5-14.5); WBC 11.5 thou/uL (4.0-11.0)
[2017-03-25 17:29] LABS: CREATININE 0.8 mg/dL (0.6-1.0); MAGNESIUM 2.1 mg/dL (1.8-2.4)
[2017-03-25 18:48] LABS: URINE BILIRUBIN NEGATIVE (Negative); URINE BLOOD 3+ (Negative); URINE CLARITY CLEAR; URINE COLOR YELLOW; URINE GLUCOSE-RANDOM* NEGATIVE (Negative); URINE KETONES NEGATIVE (Negative); URINE LEUKOCYTES-REFLEX NEGATIVE (Negative); URINE NITRITE-REFLEX NEGATIVE (Negative); URINE PROTEIN (DIPSTICK) NEGATIVE (Negative); URINE SPECIFIC GRAVITY 1.025 (1.005-1.035); URINE UROBILINOGEN 0.2 E.U./dl (0.2-1.0)
[2017-03-25 18:58] LABS: SQUAMOUS 0-3 Few /LPF (0-3); URINE WBC-REFLEX 0-5 Rare /HPF (0-5)
[2017-03-25 18:59] LABS: BACTERIA-REFLEX 1-9 Few /HPF (None Seen); CASTS None Seen /LPF (None Seen); CRYSTALS None Seen /LPF (None Seen)
[2017-03-25 20:03] LABS: BE(vivo) 0.3 mmol/L (-2 to +3); HCO3 28.4 mmol/L (22.0-26.0); PCO2 63.3 mmHg (35.0-45.0); PO2 115.4 mmHg (80.0-100.0); sO2 97.6 % (92.0-98.0)
[2017-03-26] VITALS (20 sets, daily range): BP systolic 104–180; BP diastolic 77–140
[2017-03-26 03:37] LABS: BASOPHILS 0.2 % (0.0-2.0); HEMATOCRIT 33.2 % (37.0-47.0); HEMOGLOBIN 10.5 gm/dL (12.0-15.0); LYMPHOCYTES 5.8 % (24.0-44.0); MCH 27.3 pg (26.0-34.0); MCHC 31.8 g/dL (28.0-37.0); MCV 85.9 fL (80.0-100.0); PLATELET COUNT 260 thou/uL (150-400); RBC 3.86 mil/uL (4.20-5.00); RDW 18.4 % (10.5-14.5); WBC 9.3 thou/uL (4.0-11.0)
[2017-03-26 03:45] LABS: CALCIUM 8.2 mg/dL (8.5-10.1); CREATININE 0.8 mg/dL (0.6-1.0); POTASSIUM 4.6 mmol/L (3.5-5.1)
[2017-03-27] VITALS (7 sets, daily range): BP systolic 163–192; BP diastolic 76–118
[2017-03-27 04:41] LABS: CALCIUM 8.6 mg/dL (8.5-10.1); CREATININE 0.7 mg/dL (0.6-1.0); POTASSIUM 4.1 mmol/L (3.5-5.1)
[2017-03-27 04:42] LABS: BASOPHILS 0.2 % (0.0-2.0); EOSINOPHILS 0.2 % (0.0-3.0); HEMATOCRIT 30.4 % (37.0-47.0); HEMOGLOBIN 9.8 gm/dL (12.0-15.0); LYMPHOCYTES 5.4 % (24.0-44.0); MCH 27.3 pg (26.0-34.0); MCHC 32.1 g/dL (28.0-37.0); MCV 85.1 fL (80.0-100.0); MONOCYTES 6.8 % (1.0-8.0); PLATELET COUNT 225 thou/uL (150-400); POLYS 87.4 % (36.0-66.0); RBC 3.57 mil/uL (4.20-5.00); RDW 18.5 % (10.5-14.5); WBC 9.2 thou/uL (4.0-11.0)
[2017-03-28] VITALS (9 sets, daily range): BP systolic 141–189; BP diastolic 71–110
[2017-03-28 04:55] LABS: ABSOLUTE NEUTROPHILS 5.3 thou/uL (1.4-8.2); BASOPHILS 0.4 % (0.0-2.0); EOSINOPHILS 2.3 % (0.0-3.0); HEMATOCRIT 29.2 % (37.0-47.0); HEMOGLOBIN 9.5 gm/dL (12.0-15.0); LYMPHOCYTES 10.8 % (24.0-44.0); MCH 27.8 pg (26.0-34.0); MCHC 32.4 g/dL (28.0-37.0); MCV 85.7 fL (80.0-100.0); MONOCYTES 8.1 % (1.0-8.0); PLATELET COUNT 244 thou/uL (150-400); POLYS 78.4 % (36.0-66.0); RDW 18.6 % (10.5-14.5); WBC 6.7 thou/uL (4.0-11.0)
[2017-03-28 05:28] LABS: CALCIUM 8.6 mg/dL (8.5-10.1); CREATININE 0.8 mg/dL (0.6-1.0); POTASSIUM 3.7 mmol/L (3.5-5.1)
[2017-03-29 00:39] VITALS: BP 167/96
[2017-03-29 04:25] VITALS: BP 137/82
[2017-03-29 08:17] VITALS: BP 137/82
[2017-03-29 16:20] VITALS: BP 168/91
[2017-03-29 20:02] VITALS: BP 176/99
[2017-03-30 03:13] LABS: CREATININE 0.7 mg/dL (0.6-1.0); HEMATOCRIT 29.7 % (37.0-47.0); HEMOGLOBIN 9.6 gm/dL (12.0-15.0); MCH 27.3 pg (26.0-34.0); MCHC 32.1 g/dL (28.0-37.0); RBC 3.5 mil/uL (4.20-5.00); RDW 18.2 % (10.5-14.5); WBC 7.7 thou/uL (4.0-11.0)
[2017-03-30 03:20] LABS: POTASSIUM 2.8 mmol/L (3.5-5.1)
[2017-03-30 03:29] VITALS: BP 145/78
[2017-03-30 08:10] VITALS: BP 149/100
[2017-03-30 11:23] VITALS: BP 134/80
[2017-03-30 15:15] VITALS: BP 159/93
[2017-03-30 20:07] VITALS: BP 180/104
[2017-03-31 00:40] VITALS: BP 170/81
[2017-03-31 03:11] LABS: CALCIUM 8.4 mg/dL (8.5-10.1); CREATININE 0.6 mg/dL (0.6-1.0); POTASSIUM 3.4 mmol/L (3.5-5.1)
[2017-03-31 05:43] VITALS: BP 178/97
[2017-03-31 07:56] VITALS: BP 151/82
[2017-03-31] MEDS ORDERED: HYDROCODONE-AP1 EAC6 PO (08:18)
[2017-03-31] MEDS ORDERED: SENNA-S TABLET1 EACH PO (08:18)
[2017-03-31] MEDS ORDERED: AUGMENTIN 875-1 EACH PO (08:21)
[2017-03-31 14:39] VITALS: BP 151/82
[2017-03-31 15:36] VITALS: BP 151/82
== END 2017-03-31 16:04 | disposition home health service (06) | DRG 853 ==
LOC: ICU 05:20 → TBA 05:20 → PRE 08:16 → 4N 14:30 → ICU 17:27 → 2N 03-28 11:35 → ENTRNSPT 03-31 15:40 → 2N 03-31 16:04 → PRE 04-04 12:02
PROVIDERS: Hospitalist; Internal Medicine; Internal Medicine Infectious Disease; Surgery
PROC: 0DN60ZZ Release Stomach, Open Approach (ICD-10-PCS; principal; 2017-03-25)
PROC: 0DT80ZZ Resection of Small Intestine, Open Approach (ICD-10-PCS; principal; 2017-03-25)
PROC: 0DTJ0ZZ Resection of Appendix, Open Approach (ICD-10-PCS; principal; 2017-03-25)
PROC: 0DBP0ZZ Excision of Rectum, Open Approach (ICD-10-PCS; principal; 2017-03-25)
PROC: 5A09357 Assistance with Respiratory Ventilation, Less than 24 Consecutive Hours, Continuous Positive Airway Pressure (ICD-10-PCS; principal; 2017-03-25)
PROC: 5A09357 Assistance with Respiratory Ventilation, Less than 24 Consecutive Hours, Continuous Positive Airway Pressure (ICD-10-PCS; 2017-03-26)
DX: A41.9 Sepsis, unspecified organism (principal); J96.01 Acute respiratory failure with hypoxia; J96.02 Acute respiratory failure with hypercapnia; J98.11 Atelectasis; K56.7 Ileus, unspecified; K60.4 Rectal fistula; J44.9 Chronic obstructive pulmonary disease, unspecified; K66.0 Peritoneal adhesions (postprocedural) (postinfection); F32.9 Major depressive disorder, single episode, unspecified; F41.9 Anxiety disorder, unspecified; K21.9 Gastro-esophageal reflux disease without esophagitis; E87.5 Hyperkalemia; I10 Essential (primary) hypertension; R00.0 Tachycardia, unspecified; E83.42 Hypomagnesemia; Z79.899 Other long term (current) drug therapy
CPT/HCPCS: 10078; 10797; 50010; 50093; 50101; 50290; 50331; 50386; 50455; 50740; 50953; 51412; 51435; 51436; 51708; 51712; 56525; 56527; 56530; 56771; 57092; 62110; 62900; 65002; 70005

== ENCOUNTER → 2017-04-06 | Outpatient (CLI) | payer OTHER ==
[~2017-04-06] MED LIST changes: +AUGMENTIN 875-1 EACH PO; +SENNA-S TABLET1 EACH PO
== END ==
LOC: SEN 08:39
DX: J44.9 Chronic obstructive pulmonary disease, unspecified (principal); F32.9 Major depressive disorder, single episode, unspecified